=== PATIENT | female | born 1995 | race Caucasian/White ===

== ENCOUNTER → 2023-06-06 | Outpatient (CLI) | payer OTHER, SELFPAY ==
[2023-06-06 09:57] LABS: Absolute Lymphocyte Count 2.13 X10^3/uL (0.83-4.51); Absolute Neutrophil Count 6.9 X10^3/uL (2.0-7.7); Basophil# 0.05 X10^3/uL; Basophil% 0.5 % (0-1); Eosinophil# 0.07 X10^3/uL; Eosinophils% 0.7 % (0-5); Hematocrit 34.8 % (37-47); Hemoglobin 11.8 g/dL (12.0-15.0); Lymphocyte # 2.13 X10^3/ul (0.83-4.51); Mean Corp Hgb Conc 33.9 g/dL (32-36); Mean Corpuscular Hgb 29.8 pg (27.0-32.0); Mean Corpuscular Volume 87.9 fL (81-99); Mean Platelet Vol. 9.6 fl (6.2-12.0); Monocyte# 0.53 X10^3/uL; Monocyte% 5.5 % (0-10); NRBC Flagged by Analyzer 0 % (0-5); Neutrophil # 6.85 X10^3/uL (2.7-7.7); Neutrophil % 70.9 % (47-70); Platelet Count 281 K/mm3 (150-450); RBC Distribution Width CV 11.4 % (11.6-14.6); RBC Distribution Width SD 36.9 fl (35.1-43.9); Red Blood Count 3.96 M/mm3 (4.2-5.4); White Blood Count 9.7 K/mm3 (4.4-11.0)
[2023-06-06 10:47] LABS: NATERA MAILED SPECIMEN
[2023-06-06 11:15] LABS: HIV - WCH Non-Reactive (Nonreactive); Hepatitis B Surface Antigen Non-Reactive (Nonreactive); Hepatitis C Antibody Non-Reactive (Nonreactive); Rubella IgG Reactive (Nonreactive); Syphilis Antibodies Non-reactive
[2023-06-08 04:07] LABS: Chlamydia By Nucleic Acid AMP Negative (Negative); Gonococcus By Nucleic Acid AMP Negative (Negative)
== END | disposition home or self-care (01) ==
PROVIDERS: Referring Provider Obstetrics & Gynecology; Visit Provider Obstetrics & Gynecology
DX: Z34.90 Encounter for supervision of normal pregnancy, unspecified, unspecified trimester (principal)
CPT/HCPCS: 36415; 85025; 86703; 86762; 86780; 86803; 86850; 86900; 86901; 87086; 87088; 87340; 87491; 87591

== ENCOUNTER → 2023-06-07 | Outpatient (CLI) | payer OTHER, SELFPAY ==
--- NOTE | 2023-06-07 15:23 | US_ITS ---
INDICATION: LMP UNKNOWN-dates EXAMINATION: Ultrasound US OB Less Than 14 Weeks TECHNIQUE: Transabdominal pelvic ultrasound was performed. Grayscale, spectral waveform, and color flow Doppler evaluation of the adnexa. COMPARISON: None LMP: [Unknown Beta-hCG: Unknown FINDINGS: UTERUS: 9.6 x 8.4 x 6.1 cm. There are several small nabothian cysts were noted in the cervix. RIGHT OVARY: 3.4 x 2.3 x 1.7 cm. Numerous small follicular cysts are present. Arterial flow is documented with Doppler. LEFT OVARY: 3.4 x 1.9 x 2.0 cm. 1 or 2 small follicular cysts are present. Arterial flow is documented with Doppler. FREE FLUID: None. INTRAUTERINE GESTATIONAL SAC(s) (size/shape): Single. Mean sac diameter is 5.17 cm, corresponding to a gestational age of 11 weeks, 0 days. Normal shape. YOLK SAC: Identified, measuring 4.5 mm POLE: Identified CRL 3.21 cm, corresponding to gestational age of 9 weeks, 6 days. HEART MOTION: 171-180 bpm. PLACENTA: An early anterior placenta is identified. SUBCHORIONIC HEMORRHAGE: 1.2 x 1.1 x 0.6 mm hypoechogenicity at the right upper margin of the gestational sac is consistent with a small subchorionic hemorrhage. AMNIOTIC FLUID: Qualitatively normal. US/Init OB < 14Wks US IMPRESSION: 1. Single live intrauterine at estimated gestational age of 10 weeks, 3 days. Estimated date of delivery is December 31, 2023. 2. Small subchorionic hemorrhage or implantation bleed at the right upper margin of the gestational sac. 3. Early anterior placenta is noted. 4. Unremarkable follicular cysts are seen in the normal sized ovaries. Electronically Signed: Angel Floyd MD at 16:48 EDT Reading Location ID and State: [id number] / Unknown , Service support ,
== END | disposition home or self-care (01) ==
LOC: US 15:21
PROVIDERS: Referring Provider Obstetrics & Gynecology; Visit Provider Obstetrics & Gynecology
DX: Z78.9 Other specified health status (principal)
CPT/HCPCS: 76801

== ENCOUNTER 2023-07-05 16:20 | Observation (INO) | payer OTHER, SELFPAY ==
[2023-07-05 16:21] VITALS: BP 129/91; PULSE 99; RESP 18; TEMP 36.4; O2SAT 100; BMI 26.2
[2023-07-05 16:56] LABS: Absolute Lymphocyte Count 2.28 X10^3/uL (0.83-4.51); Absolute Neutrophil Count 11.6 X10^3/uL (2.0-7.7); Basophil# 0.04 X10^3/uL; Basophil% 0.3 % (0-1); Eosinophil# 0.07 X10^3/uL; Eosinophils% 0.5 % (0-5); Hematocrit 32.2 % (37-47); Hemoglobin 11.4 g/dL (12.0-15.0); Lymphocyte # 2.28 X10^3/ul (0.83-4.51); Lymphocyte % 15.5 % (19-41); Mean Corp Hgb Conc 35.4 g/dL (32-36); Mean Corpuscular Hgb 30.5 pg (27.0-32.0); Mean Corpuscular Volume 86.1 fL (81-99); Mean Platelet Vol. 9.7 fl (6.2-12.0); Monocyte% 4.8 % (0-10); NRBC Flagged by Analyzer 0 % (0-5); Neutrophil # 11.56 X10^3/uL (2.7-7.7); Neutrophil % 78.6 % (47-70); Platelet Count 271 K/mm3 (150-450); RBC Distribution Width CV 11.9 % (11.6-14.6); RBC Distribution Width SD 37.3 fl (35.1-43.9); Red Blood Count 3.74 M/mm3 (4.2-5.4); White Blood Count 14.7 K/mm3 (4.4-11.0)
[2023-07-05 17:17] LABS: ALB/GLOB Ratio 0.9 RATIO (0.9-2.4); AST(SGOT) 16 U/L (15-37); Alanine Aminotransfer ALT/SGPT 19 U/L (13-56); Albumin, Serum 3.5 g/dL (3.2-5.0); Alkaline Phosphatase 62 U/L (45-117); Anion Gap 8 (5-15); BUN 6 mg/dL (7-18); Calcium,Total 8.9 mg/dL (8.5-10.1); Chloride 106 mmol/L (98-107); Creatinine, Serum 0.46 mg/dL (0.55-1.02); EST Glomerular Filtration Rate 174 mL/min (>60); Est Glom Filt Rate - Afr Amer 210 mL/min (>60); Estimated Creatinine Clearance 146.58 ml/min; Globulin 3.9 g/dL (2.2-4.2); Glucose 93 mg/dL (74-106); Potassium 3.7 mmol/L (3.5-5.1); Protein, Total 7.4 g/dL (6.4-8.2); Sodium Level 136 mmol/L (136-145)
--- NOTE | 2023-07-05 18:03 | ED.VIS.GI ---
HPI HPI - GI History of Present Illness Chief Complaint: Abd Pain Informant: patient Narrative Narrative: Patient started having abdominal pain in the right mid-lower abdomen around 4 AM, she presents to the ED for evaluation and is seen about 14 hours later, the pain has been getting worse, it is moved from laterally a little bit over and down to around McBurney's point. She ate today without any difficulty and it did not make the pain worse. No fevers. No urinary symptoms. She is around 15 weeks. She has had no issues with the except for nausea and vomiting, she does not think that has been worse. She saw her bus trolley and taxi instructor today for this, Dr. Enrique, and she sent her to the ED for an ultrasound to evaluate for appendicitis. 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[employer] current occupational exposures/hazards: No pets and animals: Yes pets and animals: dog(s) history of recent travel: No sexually active: Yes Smoking Status: Never smoker alcohol intake: never substance use type: does not use well-balanced diet: daily or most days caffeine: No eating out: 1-3 times/week during the past year weight has: remained stable what type of physical activity do you participate in: weight training frequency: 3-4 times per week duration: 45-60 minutes/day ralf/holiness: None seatbelt use: always do you feel safe at home: Yes additional social history: Rufina Kruger ROS ROS ED Constitutional Constitutional ED: Denies chills or fever(s) Eyes Eyes: Denies change in vision or diplopia ENT ENT ED: Denies rhinorrhea or sore throat Cardiovascular Cardiovascular: Denies chest pain or palpitations Respiratory/Chest Respiratory/Chest: Denies cough or dyspnea Gastrointestinal Gastrointestinal: Reports abdominal pain, nausea and vomiting; Denies diarrhea Genitourinary Genitourinary ED: Denies dysuria or hematuria Musculoskeletal Musculoskeletal: Denies back pain or neck pain Integumentary Denies abscess or rash Neurologic Neurologic: Denies headache(s), paresthesias or weakness Psychiatric Psychiatric: Denies anxiety or suicidal thoughts EXAM Physical Exam Const Vital Signs: 07/05/23 16:21 07/05/23 19:00 07/05/23 22:46 Temperature 97.6 F L 98 F Temperature Source Temporal Temporal Pulse Rate 99 93 Respiratory Rate 18 20 H 18 Blood Pressure 129/91 H 113/79 Blood Pressure Mean 103 90 Pulse Ox 100 99 Oxygen Delivery Method Room Air Room Air 07/05/23 22:49 Temperature 98 F Temperature Source Temporal Pulse Rate 93 Respiratory Rate 16 Blood Pressure 113/79 Blood Pressure Mean 90 Pulse Ox 99 Oxygen Delivery Method Room Air Positive well nourished and well developed General Appearance ED: well developed and NAD HEENT Reports moist mucous membranes normocephalic and atraumatic Eyes PERRL and EOMs intact bilaterally Neck full ROM and supple Resp normal respiratory effort and clear to auscultation bilaterally Cardio regular rate, regular rhythm and no murmurs GI non-distended GI Narrative: Patient is tender at McBurney's point, as the area of maximal tenderness. There is no guarding or rebound tenderness. The rest the abdomen is benign. Negative Rovsing. Auscultation: normoactive bowel sounds Palpation: soft Back/Spine no CVA tenderness General Back: other FROM Extremity normal to inspection General Extremety ED: Negative for edema, pulses abnormal or tenderness General Extremity: Negative for edema or pulses abnormal Neuro oriented x3, CN's II-XII intact bilaterally and no sensory deficits noted Sensorium / Orientation: awake and alert Motor Exam: strength 5/5 throughout Skin no rashes or lesions noted and no wounds MDM MDM MDM Narrative Medical decision making narrative: Patient does have a leukocytosis, she is tender in the right area and acute appendicitis is certainly in the differential here. I discussed with ultrasound, they are not able to even perform the test to look for her appendix. Discussed with surgery Dr. Cao, he states the CT often is done here but an MRI would be appropriate as well. I discussed with the pilot plant research technician, she said she has never done it for this reason before and does not have a protocol, and so she made phone calls discussing with radiology, and then the manager sign of the radiology department called me, said that he discussed with the radiologist and they asked the computer field technician to perform the ultrasound, MR was very backed up, and they would do an MR if needed after the ultrasound. The ultrasound was not performed, they did not do compression of the tubular structure that appeared to be mildly dilated appendix, and so it was read as equivocal. At this time surgery recommended a CT, the patient was very apprehensive of getting the CT due to the radiation, understandably. I discussed with Dr. Strong with the patient's OB practice, who discussed with the patient, and in the end everyone is in agreement that the benefits of the CT outweigh the risks which are minimal, and the patient is okay getting the limited CT, surgery recommends getting it with IV contrast only. This was obtained. I reviewed the images, as did surgery, and we discussed with the patient, as we are suspicious it represents acute appendicitis. Patient was given IV fluids, Zosyn, Zofran, and plan is taking her directly to surgery. Radiology did call regarding the CT results, consistent with nonruptured acute appendicitis, which I agree with. Lab Data Attestation: I reviewed the patient's lab results. Labs: Laboratory Results - last 24 hr 07/05/23 07/05/23 16:47 20:02 WBC 14.7 H RBC 3.74 L Hgb 11.4 L Hct 32.2 L MCV 86.1 MCH 30.5 MCHC 35.4 RDW Std Deviation 37.3 RDW Coeff of [place] 11.9 Plt Count 271 MPV 9.7 Immature Gran % (Auto) 0.300 Neut % (Auto) 78.6 H Lymph % (Auto) 15.[address] [place] [place] % (Auto) 4.8 Eos % (Auto) 0.5 Baso % (Auto) 0.3 Absolute Neuts (auto) 11.6 H Absolute Lymphs (auto) 2.28 Nucleated RBC % 0 Sodium 136 Potassium 3.7 Chloride 106 Carbon Dioxide 22.0 Anion Gap 8 BUN 6 L Creatinine 0.46 L Estim Creat Clear Calc 146.58 Est GFR (MDRD) Af Amer 210 Est GFR (MDRD) Non-Af 174 BUN/Creatinine Ratio 13.0 Glucose 93 Calcium 8.9 Total Bilirubin 0.30 AST 16 ALT 19 Alkaline Phosphatase 62 Total Protein 7.4 Albumin 3.5 Globulin 3.9 Albumin/Globulin Ratio 0.9 Urine Color Yellow Urine Clarity Clear Urine pH 6.5 Ur Specific [place] 1.010 Urine Protein Negative Urine Glucose (UA) Normal Urine Ketones 5 H Urine Occult Blood Negative Urine Nitrite Negative Urine Bilirubin Negative Urine Urobilinogen Normal Ur Leukocyte Esterase Negative Urine RBC 0 SEEN Urine WBC 0 SEEN Ur Squamous Epith Cells 0-5 SEEN Urine Bacteria 1+ Urine Mucus 0 SEEN Radiography Diagnostic Testing: Clinical Impression(s) from Imaging Studies Abdomen Ultrasound 07/05/23 19:15 IMPRESSION: Findings equivocal for acute nonruptured appendicitis. Electronically Signed: David Pichardo MD at 21:02 EDT , Pelvis CT 07/05/23 21:43 IMPRESSION: Acute nonruptured appendicitis. No focal fluid collection or free air. Electronically Signed: David Pichardo MD at 22:54 EDT , Management Discussion w/another healthcare provider: Windows Laptop Technician (surgery), Radiologist and Other (see above) Critical Care Time Critical Care Time: Yes Critical care time (excluding procedures): 30-74 minutes (45 min), Including time spent:, Discussing w/Patient &/or Family/Flange Turner, Discussing w/Consultants, Arranging Admission or Transfer and Performing Direct Patient Care at Bedside Discharge Plan Dx/Rx/DC Orders Clinical Impression: Acute appendicitis complicating Disposition Disposition: [facility]
[2023-07-05 19:00] VITALS: RESP 20
--- NOTE | 2023-07-05 19:15 | US_ITS ---
INDICATION: preg 15 wks, RLQ pain, eval for appy EXAMINATION: US Abdomen Limited (quadrant) TECHNIQUE: Gillespie-scale and color Doppler imaging was performed of the right lower quadrant.. COMPARISON: None. Findings: There is a blind ending tubular structure in the right lower quadrant likely representing the appendix. It is mildly dilated measuring up to 9 mm in diameter. There is no wall thickening. There is no surrounding inflammatory changes. It is slightly hyperemic. No definite appendicolith. No free fluid. US/Abdomen Limited IMPRESSION: Findings equivocal for acute nonruptured appendicitis. Electronically Signed: David Pichardo MD at 21:02 EDT ,
[2023-07-05 20:07] LABS: Mucous, Urine 0 SEEN /hpf (<or=2+); Red Blood Cells-Urine 0 SEEN /hpf (0-5); White Blood Cells 0 SEEN /hpf (0-5)
[2023-07-05 20:08] LABS: Color, Urine Yellow (Yellow); Glucose, Dipstick Normal (Normal); Ketone-Dipstick 5 mg/dl (Negative); Leukocyte Esterase-Dipstick Negative /ul (Negative); Nitrite-Dipstick Negative (Negative); Occult Blood-Urine Negative /ul (Negative); Protein-Dipstick Negative (Negative); Urine Bilirubin Dipstick Negative (Negative); Urine Clarity Clear (Clear); Urine Urobilinogen Normal (Normal); Urine pH 6.5 (5.0 - 8.0)
[2023-07-05 20:15] LABS: Bacteria 1+ /hpf (None Seen); Squamous Epithelial Cells - UA 0-5 SEEN /hpf (5-10)
--- NOTE | 2023-07-05 20:51 | CM.ED ---
Social Work Note Referral Source: case find Referral Reason: no PCP SW met with patient and introduced herself and role as [facility] Bookkeeping Clerk. Patient lying on hospital bed and agreeable to speak with SW with family present. SW inquired about patient's insurance and current PCP. Patient verified insurance and reports no current PCP. SW provided patient with a list of local PCPs in network with patient's insurance and accepting new patients. Patient was receptive towards list and voiced no other needs. SW remains available if needs arise. Taylor Pryor CITY COLLECTOR, JANEY
--- NOTE | 2023-07-05 21:43 | CT_ITS ---
We are attempting to reach an attending provider to discuss findings. An addendum with communication details will be sent when the communication is complete. INDICATION: RLQ pain, suspect appy, preg 15 wks -- LIMITED EXAM PLEASE EXAMINATION: CT Pelvis W/ Contrast Injection TECHNIQUE: Helically acquired images were obtained of the pelvis after IV contrast. A radiation dose optimization technique was used for this scan. IV Contrast dosage and agent: IV 100mL [id number]-370 Oral contrast: None. COMPARISON: None. FINDINGS: Liver: Visualized portions are unremarkable. Gallbladder: Visualized portions are unremarkable. Pancreas: Visualized portions are unremarkable. Kidneys: Visualized portions are unremarkable. Vasculature: Unremarkable GI Tract: The appendix is dilated measuring up to 1 cm in diameter. There is a hyperenhancing an slightly thickened wall. There is mild surrounding mesenteric fat stranding. No focal fluid collection or free air. Lymphadenopathy: None Peritoneum: No ascites. Bladder: Unremarkable Reproductive organs: Intrauterine gestation is present. Bones/Soft tissues: No suspicious osseous or soft tissue lesions CT/Pelvis WITH IV Contrast IMPRESSION: Acute nonruptured appendicitis. No focal fluid collection or free air. Electronically Signed: David Pichardo MD at 22:54 EDT ,
--- NOTE | 2023-07-05 22:18 | PCM.HP.STD ---
HPI - General General Date of Admission: 07/05/23 HPI Narrative PIA VIEIRA, is a 27 F who presents to the ER due to a right lower quadrant pain. Patient is currently 14 to 15 weeks with her first . Patient states the right lower quadrant pain started about 4 AM this morning was initially little bit higher and did go a little bit lower more this evening. Patient did have an ultrasound in the ER which was read as equivocal for acute appendicitis. Patient's white blood count is 14.7. Patient did undergo a CT after slight hesitation after talking with OB about the the risk versus benefits. CT abdomen/pelvis was consistent with acute appendicitis on my read current read is pending. Patient did have heart tones done prior to surgery -- 164. 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[employer] current occupational exposures/hazards: No pets and animals: Yes pets and animals: dog(s) history of recent travel: No sexually active: Yes Smoking Status: Never smoker alcohol intake: never substance use type: does not use well-balanced diet: daily or most days caffeine: No eating out: 1-3 times/week during the past year weight has: remained stable what type of physical activity do you participate in: weight training frequency: 3-4 times per week duration: 45-60 minutes/day ralf/latter-day: None seatbelt use: always do you feel safe at home: Yes additional social history: Rufina Kruger Vital Signs Vital Signs Vital Signs: 07/05/23 16:21 07/05/23 19:00 Temperature 97.6 F L Temperature Source Temporal Pulse Rate 99 Respiratory Rate 18 20 H Blood Pressure 129/91 H Blood Pressure Mean 103 Pulse Ox 100 Oxygen Delivery Method Room Air Weight Weight: 143 lb Body Mass Index (BMI) 26.2 Physical Exam Const alert, oriented x3 and no apparent distress HEENT normocephalic and head/scalp atraumatic Resp normal respiratory effort Cardio regular rate GI soft to palpation GI Narrative: Gestation 14 weeks uterus Palpation: tender RLQ; Negative for guarding Extremity no clubbing, cyanosis or edema Neuro CN's II-XII intact bilaterally Psych mental status grossly normal Results Lab / Micro Data 07/05/23 16:47 07/05/23 16:47 Labs: Laboratory Results - last 24 hr 07/05/23 16:47: WBC 14.7 H, RBC 3.74 L, Hgb 11.4 L, Hct 32.2 L, MCV 86.1, MCH 30.5, MCHC 35.4, RDW Std Deviation 37.3, RDW Coeff of [place] 11.9, Plt Count 271, MPV 9.7, Immature Gran % (Auto) 0.300, Neut % (Auto) 78.6 H, Lymph % (Auto) 15.5 L, [place] % (Auto) 4.8, Eos % (Auto) 0.5, Baso % (Auto) 0.3, Absolute Neuts (auto) 11.6 H, Absolute Lymphs (auto) 2.28, Nucleated RBC % 0, Sodium 136, Potassium 3.7, Chloride 106, Carbon Dioxide 22.0, Anion Gap 8, BUN 6 L, Creatinine 0.46 L, Estim Creat Clear Calc 146.58, Est GFR (MDRD) Af Amer 210, Est GFR (MDRD) Non-Af 174, BUN/Creatinine Ratio 13.0, Glucose 93, Calcium 8.9, Total Bilirubin 0.30, AST 16, ALT 19, Alkaline Phosphatase 62, Total Protein 7.4, Albumin 3.5, Globulin 3.9, Albumin/Globulin Ratio 0.9 07/05/23 20:02: Urine Color Yellow, Urine Clarity Clear, Urine pH 6.5, Ur Specific [place] 1.010, Urine Protein Negative, Urine Glucose (UA) Normal, Urine Ketones 5 H, Urine Occult Blood Negative, Urine Nitrite Negative, Urine Bilirubin Negative, Urine Urobilinogen Normal, Ur Leukocyte Esterase Negative, Urine RBC 0 SEEN, Urine WBC 0 SEEN, Ur Squamous Epith Cells 0-5 SEEN, Urine Bacteria 1+, Urine Mucus 0 SEEN Radiology Impression Abdomen Ultrasound 07/05/23 19:15 IMPRESSION: Findings equivocal for acute nonruptured appendicitis. Electronically Signed: David Pichardo MD at 21:02 EDT , Assessment & Plan Assessment/Plan (1) Appendicitis, acute: (2) : PLAN: Plan 1. Discussed procedure laparoscopic appendectomy along with the risk but not limited to bleeding, infection/abscess, injury to another organ (small bowel, colon, etc.), adhesion, hernia at incision sites, and risks to the fetus even an uncomplicated appendicitis which would be greater if it were perforated and anesthesia. We will plan for heart tones in PACU as well as plan for an ultrasound in the morning?did discuss with Dr. Strong patient's OB. Preeti Cao M.D. Pager: [phone] [facility] [address] [place] [address], [address] [place] [address] Office: [phone]
[2023-07-05] MEDS: Ondansetron 4 MG/2 ML Vial IV (22:39)
[2023-07-05] MEDS: 0.9% Normal Saline 1,000 ML 250 ML IV (22:42)
[2023-07-05 22:46] VITALS: BP 113/79; PULSE 93; RESP 18; TEMP 36.6; O2SAT 99
[2023-07-05 22:49] VITALS: BP 113/79; PULSE 93; RESP 16; TEMP 36.6; O2SAT 99
--- NOTE | 2023-07-05 23:20 | APP_PTH ---
PATIENT: PIA VIEIRA APRIL LOC: MS3 U#:[id number] AGE/SX: 27/F ROOM: NV310 RE07/05/[address]: Dr. Preeti Cao MD : 1995 BED: 1 DIS: 07/06/2023 SPEC #: [id number] RECD: 07/06/23 12:57 STATUS: DAYNA REMargarita #: [id number] ALVARADO: 07/05/23 23:[address]: Preeti Cao DEPT: SURGICAL PATHOLOGY RECD BY: Lavinia Servin ENTERED: 07/07/23 07:35 SP TYPE: APPENDIX OTHR DR: No Primary Care Phys Tissues: Appendix, NOS Procedures: Surgery Specimen Level III HEADER OPERATION: Laparoscopic appendectomy PRE-OP DIAGNOSIS: Acute appendicitis TISSUE SUBMITTED: Appendix MICROSCOPIC DIAGNOSIS Appendix, appendectomy: Acute appendicitis. Acute serositis. AM:guy 07/08/2023 MICROSCOPIC DESCRIPTION Slides are reviewed. GROSS DESCRIPTION Received in fixative is one container labeled with the patient's name and designated appendix. The specimen consists of a vermiform appendix measuring 6.0 cm in length and 1.0 cm in average diameter. No gross perforations are evident. Serial sections reveal a patent lumen. Saw Grinder sections are submitted in two cassettes. / AM:guy 07/07/2023 TC:2 CPT: 98772
[2023-07-05] MEDS: Bupivacaine Mpf 0.5% 30 ML VIAL (23:58)
--- NOTE | 2023-07-05 23:59 | PCM.OPRPT ---
Report of Operation Date of Procedure: 07/05/23 Pre-Operative Diagnosis: Acute appendicitis, 14-15 weeks gestation Post-Operative Diagnosis: Same Surgery/Procedure Performed:: Laparoscopic appendectomy Description of Surgical Findings:: Inflamed appendix no perforation Surgeon: Preeti Cao vapor coater: Jennifer Rivas Type of Anesthesia: General/Supplemental Anesthesiologist: Wolfgang Villarreal Special Medications: Zosyn 3.375 g IV x1 Specimen's removed: Appendix Estimated Blood Loss (mL): < 10 cc Description of Procedure: Indications: 27-year-old female presented to the ER with new right lower quadrant pain this morning at 4 AM. Patient is 14-15 weeks gestation. On workup she was found to have acute appendicitis on CT and a leukocytosis of 14.7. Patient was started on antibiotics in the ER for acute appendicitis-Zosyn IV Description of the procedure: The patient was placed on operating table in supine position. General anesthesia was induced. A timeout was completed verifying correct patient, procedure, position and special equipment prior to beginning procedure. Abdomen was prepped and draped in usual sterile fashion. Incision was made in the natural skin line above the umbilicus with a 15 blade scalpel. The fascia was elevated and incised. Entry into the peritoneum was confirmed visually and no bowel was noted in the vicinity of the incision. The Thomas trocar was placed under direct vision. Abdomen insufflated with a pressure of 12-15 mmHg. Patient tolerated insertion well. The scope was inserted and the abdomen inspected. No injuries from initial trocar placement were noted. Minimal amount of fluid was seen in the right lower quadrant. An direct visualization 2 -5 mm trocars were placed one above the symphysis pubis and below the hairline and one in the left lower quadrant lateral to the rectus muscle. Care is taken to avoid injury to the bladder and inferior epigastric vessels. The table was placed in Trendelenburg position with the right side elevated. The appendix was grasped with atraumatic grasper and elevated. It was noted to be inflamed. A window was developed in the mesoappendix at the point between the base of the appendix and the cecum. An endoscopic 45 mm linear cutting stapler blue load was then used to divide and staple the base of the appendix. Enseal was used to divide the mesoappendix. The appendix was withdrawn into the Thomas trocar after being placed endoscopically retrieval bag. Appendix was sent to pathology. The appendiceal stump was then irrigated and hemostasis was assured. Fluid was suctioned no other pathology was identified. Secondary trochars were removed under direct visualization. No bleeding was noted trocar sites. The laparoscope withdrawn and the umbilical trocar removed. The abdomen was allowed to collapse. Local anesthesia of 18 mL of 0.5% Marcaine was used at the incision sites. The umbilical trocar site was closed with the [id number] 0 Vicryl suture. The skin was closed using sutures of 4-0 Monocryl and Steri-Strips. The patient was extubated. The patient tolerated the procedure well and was taken to the postanesthesia care unit in satisfactory condition. Complications none
[2023-07-06] VITALS (8 sets, daily range): BP systolic 94–129; BP diastolic 47–91; PULSE 62–106; RESP 16–18; TEMP 36.6–37.4; O2SAT 95–100; BMI 26.6
--- NOTE | 2023-07-06 00:27 | NURSING ---
telephone order was received from for WP RN to obtain heart tones after surgery x1 0020 This RN went to PACU to obtain heart tones post surgery. FHR 152 via doppler. Maternal HR 77
--- NOTE | 2023-07-06 00:42 | SUR.PHASEI ---
AT APPROXIMATELY 0018, 2 RNs FROM [facility] CAME TO PACU TO ASSESS THE HEART TONES. HEART TONES ARE IN THE 150s.
[2023-07-06] MEDS: 0.9% Saline Lock 10 ML Syringe IV (01:51)
[2023-07-06] MEDS: 0.9% Normal Saline 1,000 ML 130 ML IV (01:51)
[2023-07-06] MEDS: Ondansetron 4 MG/2 ML Vial IV (01:52)
--- NOTE | 2023-07-06 07:00 | US_ITS ---
STUDY: SECOND AND THIRD TRIMESTER OBSTETRICAL ULTRASOUND - LIMITED REASON FOR EXAM: Female, 27 years old patient is 15 wk , s/p lap appy yesterday LMP: March 25, 2023. PRIOR ULTRASOUND: Comparison is made with prior study dated June 07, 2023. TECHNIQUE: Transabdominal TECHNICAL QUALITY: Adequate. FINDINGS: There is a single intrauterine fetus. The fetus is in a breech presentation. There is demonstrated cardiac activity with a heart rate of 165 bpm. There is a normal amniotic fluid volume. The largest amniotic fluid pocket measures 3 cm x 3.8 cm. The amniotic fluid index (ZEYNEP) is within normal limits. The placenta is anterior in location and is not low lying. There are Grade 0 placental changes. The cervix measures 5.2 cm in length. BIOMETRY: Age by LMP: 14 weeks, 5 days. THADDEUS by LMP: December 30, 2023. age by prior US: 14 weeks, 4 days. THADDEUS by prior US: December 31, 2023. US/OB Limited (No Biometrics) IMPRESSION: Single live intrauterine gestation with a mean gestational age of 14 weeks and 4 days. Electronically Signed: Rubén Sanchez MD at 9:22 EDT ,
--- NOTE | 2023-07-06 08:34 | PCM.PN.SRG ---
Subjective Subjective Tolerating diet and having small mount of flatus. Patient's pain is controlled. Patient had the OB ultrasound which showed good heart tones. Objective Data Objective Data Vital Signs: Vital Signs Temp Pulse Resp BP Pulse Ox O2 Del Method 99.2 F H 80 16 94/47 L 96 Room Air 07/06/23 06:03 07/06/23 06:03 07/06/23 06:03 07/06/23 06:03 07/06/23 06:03 07/06/23 06:03 Oxygen Delivery Method Room Air Weight: 145 lb 9 oz Body Mass Index (BMI) 26.6 Intake & Output: Intake and Output for Last 24 Hours 07/04/23 07/05/23 07/06/23 23:59 23:59 23:59 Intake Total 50 / 50 1717.17 / 1717.17 Balance 50 / 50 1717.17 / 1717.17 Lab / Micro Data 07/05/23 16:47 07/05/23 16:47 Labs: Laboratory Results - last 24 hr 07/05/23 16:47: WBC 14.7 H, RBC 3.74 L, Hgb 11.4 L, Hct 32.2 L, MCV 86.1, MCH 30.5, MCHC 35.4, RDW Std Deviation 37.3, RDW Coeff of [place] 11.9, Plt Count 271, MPV 9.7, Immature Gran % (Auto) 0.300, Neut % (Auto) 78.6 H, Lymph % (Auto) 15.5 L, [place] % (Auto) 4.8, Eos % (Auto) 0.5, Baso % (Auto) 0.3, Absolute Neuts (auto) 11.6 H, Absolute Lymphs (auto) 2.28, Nucleated RBC % 0, Sodium 136, Potassium 3.7, Chloride 106, Carbon Dioxide 22.0, Anion Gap 8, BUN 6 L, Creatinine 0.46 L, Estim Creat Clear Calc 146.58, Est GFR (MDRD) Af Amer 210, Est GFR (MDRD) Non-Af 174, BUN/Creatinine Ratio 13.0, Glucose 93, Calcium 8.9, Total Bilirubin 0.30, AST 16, ALT 19, Alkaline Phosphatase 62, Total Protein 7.4, Albumin 3.5, Globulin 3.9, Albumin/Globulin Ratio 0.9 07/05/23 20:02: Urine Color Yellow, Urine Clarity Clear, Urine pH 6.5, Ur Specific [place] 1.010, Urine Protein Negative, Urine Glucose (UA) Normal, Urine Ketones 5 H, Urine Occult Blood Negative, Urine Nitrite Negative, Urine Bilirubin Negative, Urine Urobilinogen Normal, Ur Leukocyte Esterase Negative, Urine RBC 0 SEEN, Urine WBC 0 SEEN, Ur Squamous Epith Cells 0-5 SEEN, Urine Bacteria 1+, Urine Mucus 0 SEEN Radiography Diagnostic Testing: Radiology Impression Abdomen Ultrasound 07/05/23 19:15 IMPRESSION: Findings equivocal for acute nonruptured appendicitis. Electronically Signed: David Pichardo MD at 21:02 EDT , Pelvis CT 07/05/23 21:43 IMPRESSION: Acute nonruptured appendicitis. No focal fluid collection or free air. Electronically Signed: David Pichardo MD at 22:54 EDT , ADDENDUM: 07/05/23 2304 IMPRESSION: Acute nonruptured appendicitis. No focal fluid collection or free air. N.B. : The above Results were Read Back by David Pichardo MD to Jose Elias Alex MD, and understanding confirmed on 07/05/2023 22:57:44 (ET). Electronically Signed: David Pichardo MD at 22:54 EDT , Physical Exam Resp normal respiratory effort Cardio regular rate GI GI Narrative: Abdomen: Soft, nondistended, tender near incision's dressed clean dry and intact, no peritoneal signs Assessment & Plan Assessment/Plan (1) S/P laparoscopic appendectomy: (2) : PLAN: Plan Patient doing well pain is controlled. Patient's ultrasound did show good heart tones at 166. Okay to DC home.
[2023-07-06] MEDS: Prenatal Vits Tablet 1 TABLET PO (09:34)
--- NOTE | 2023-07-06 10:29 | DCINST_ITS ---
Discharge Instructions Diet Discharge Diet: Light diet - advance as tolerated Activity Discharge Activity: May Not Drive (while taking narcotic pain medications.) May shower in (days): 1 Lifting Restrictions: no lifting >20 lbs x 2 wks, no strenuous exercise for 4 wks Dressing / Incision Call your doctor if your incision/area has: Continuous Slow Oozing, Sudden Increased Bleeding, Increased Pain/ Swelling, Increased Redness, Foul Smelling Discharge and Swelling at the incision site Call your doctor if you observe: Fever of 101 or Higher Remove Dressing in: 2 days Cleanse incision/area with: Soap & Water Additional Dressing/Incision Instructions:: Steri-Strips will fall off in 7 to 10 days, if they do not fall off okay to remove after 10 days. Follow Up Care Please Follow Up With: Preeti Cao MD When: Call the office for a follow-up appointment 2 weeks; after 5 PM and on the weekends call [phone] with any concerns. Test Results: Test results from this visit will be discussed in further detail at your follow- up appointment, if applicable. Discharge Plan Admission Admit Date/Time: 07/05/23 22:50 Attending Provider: Preeti Cao Primary Care Provider: Johanny PhysicianArely Primary Discharge Orders/Prescriptions Prescriptions: Continued PNV-DHA 27 mg iron-1 mg -300 mg capsule 1 cap PO DAILY Referrals / Follow Up: Johanny PhysicianArely Primary [Primary Care Provider] - Disposition Disposition (needs filled in before D/C Order can be placed): Home, Self Care
--- NOTE | 2023-07-06 10:42 | PHA.DC.MR.R ---
Pharmacy OR Med Reconciliation Pharmacy Service has performed discharge medication reconciliation for this patient. The patient's discharge medication list was reviewed for discrepancies and discrepancies were resolved. Medications at Discharge Home Medications multivitamin no.47-iron fum 27 mg-folate no.1 1 mg-dha 300 mg capsule (PNV-DHA) 1 cap PO DAILY vitamin 05/26/23
== END 2023-07-06 11:56 | disposition home or self-care (01) ==
LOC: ED 18:44 → MS3 22:36 → ED 22:58 → MS3 23:00
PROVIDERS: Admitting Provider Surgery; Emergency Provider Emergency Medicine; Visit Provider Surgery
PROC: 0DTJ4ZZ Resection of Appendix, Percutaneous Endoscopic Approach (ICD-10-PCS; CPT 44970; principal; 2023-07-05 23:00)
DX: O99.612 Diseases of the digestive system complicating pregnancy, second trimester (principal); Z3A.15 15 weeks gestation of pregnancy; K35.80 Unspecified acute appendicitis
CPT/HCPCS: 44970; 00840; 96365; 72193; 76705; 76815; 80053; 81001; 85025; 88304; 96361; 96374; 96376; 99221; 99284; J7030; Q9967; A4216; C1760; G0378; J2405

== ENCOUNTER → 2023-09-19 | Outpatient (CLI) | payer OTHER, SELFPAY ==
[2023-09-19 13:44] LABS: Absolute Lymphocyte Count 2.36 X10^3/uL (0.83-4.51); Absolute Neutrophil Count 8.2 X10^3/uL (2.0-7.7); Basophil# 0.04 X10^3/uL; Basophil% 0.4 % (0-1); Eosinophil# 0.08 X10^3/uL; Eosinophils% 0.7 % (0-5); Hematocrit 32.8 % (37-47); Hemoglobin 10.8 g/dL (12.0-15.0); Lymphocyte # 2.36 X10^3/ul (0.83-4.51); Lymphocyte % 20.9 % (19-41); Mean Corp Hgb Conc 32.9 g/dL (32-36); Mean Corpuscular Hgb 29.8 pg (27.0-32.0); Mean Corpuscular Volume 90.4 fL (81-99); Mean Platelet Vol. 10.1 fl (6.2-12.0); Monocyte# 0.57 X10^3/uL; Monocyte% 5.1 % (0-10); NRBC Flagged by Analyzer 0 % (0-5); Neutrophil # 8.16 X10^3/uL (2.7-7.7); Neutrophil % 72.4 % (47-70); Platelet Count 295 K/mm3 (150-450); RBC Distribution Width CV 12.5 % (11.6-14.6); RBC Distribution Width SD 41.1 fl (35.1-43.9); Red Blood Count 3.63 M/mm3 (4.2-5.4); White Blood Count 11.3 K/mm3 (4.4-11.0)
[2023-09-19 14:00] LABS: Glucose Challenge Gest 1H 50g 114 mg/dL (70-140)
[2023-09-19 14:34] LABS: HIV - WCH Non-Reactive (Nonreactive); Syphilis Antibodies Non-reactive
== END | disposition home or self-care (01) ==
LOC: LAB 12:17
PROVIDERS: Referring Provider Nurse Practitioner Women's Health; Visit Provider Nurse Practitioner Women's Health
DX: Z34.90 Encounter for supervision of normal pregnancy, unspecified, unspecified trimester (principal)
CPT/HCPCS: 36415; 82950; 85025; 86703; 86780

== ENCOUNTER → 2023-11-09 | Outpatient (CLI) | payer OTHER, SELFPAY | END | disposition home or self-care (01) | PROVIDERS: Visit Provider Obstetrics & Gynecology | DX: Z34.90 Encounter for supervision of normal pregnancy, unspecified, unspecified trimester (principal) | CPT/HCPCS: 87081 ==

== ENCOUNTER → 2023-12-08 | Outpatient (CLI) | payer OTHER, SELFPAY ==
--- OUTSIDE RECORDS SUMMARY | 2023-12-08 16:36 | XMS RPT_ITS | CCD ---
Author Name Unknown Address [address] [place] [address] Organization [facility] Care Team Providers Care Internet Site Designer Name Role Phone Unavailable Primary Care Provider PEARL Cueva Attending Unavailable PEARL MORENO Referring Unavailable NO PRIMARY CARE, Primary Care Unavailable LADY DELGADO Referring BEAN Herrera Attending Unavailable Medications Completed/Discontinued Medications Medication Drug Class(es) Dates Sig (Normalized) Sig (Original) benzonatate 100 mg oral capsule (1 source) Non-narcotic Antitussive Start: 01-31-2020 End: 03-22-2022 take 2 capsules by mouth three times daily as needed benzonatate (TESSALON PERLE) 100 mg capsule Indications: Influenza-like illness Take 2 capsules by mouth three times daily as needed. 30 capsule 0 01/31/2020 03/22/2022 Discontinued Problems Problem Classification Problem Date Documented Date Episodic/Chronic Immunizations and screening for infectious disease (1 source) Patient encounter status; Translations: [Encounter for screening for human papillomavirus (HPV)] Episodic Other and delivery including normal (2 sources) Urine test positive; Translations: [Encounter for test, result positive] Onset: 01-25-2023 Episodic Other screening for suspected conditions (not mental disorders or infectious disease) (1 source) Cancer cervix screening status; Translations: [Encounter for screening for malignant neoplasm of cervix] Episodic Results Test Name Value Interpretation Reference Range Facil ity Vital Signs Date Time Vital Sign Value Performing Clinician Margareth badillo 03-22-2022 15:03-0400 Body height 158.1 cm Pearl Magnolia WATCH TECHNICIAN.HOT DIP TINNING SUPERVISOR Work Phone: [facility] 03-22-2022 15:03-0400 Body weight 63.78 kg Pearl Magnolia WATCH TECHNICIAN.HOT DIP TINNING SUPERVISOR Work Phone: [facility] 03-22-2022 15:03-0400 Diastolic blood pressure 60 mm[Hg] Pearl Moreno WATCH TECHNICIAN.HOT DIP TINNING SUPERVISOR Work Phone: [facility] 03-22-2022 15:03-0400 Systolic blood pressure 102 mm[Hg] Pearl Moreno WATCH TECHNICIAN.HOT DIP TINNING SUPERVISOR Work Phone: [facility] Encounters Encounter Date Encounter Type Care Provider Facility Start: 08-04-2023 End: 08-04-2023 ambulatory MD PRIMARY CARE [facility] Start: 03-24-2023 End: 03-25-2023 ambulatory PEARL CONRADF Facility:[facility] Start: 03-24-2023 Encounter for gynecological examination (general) (routine) without abnormal findings PEARL MORENO [facility] Start: 01-25-2023 End: 01-26-2023 ambulatory [facility] Facility:[facility] Start: 01-25-2023 Telephone encounter Pearl cruz WATCH TECHNICIAN.HOT DIP TINNING SUPERVISOR Work Phone: OB/Gynecology Plan of Treatment Date Care Activity Detail Author Start: 03-22-2025 PAP TESTING PAP TESTING [facility] Start: 01-25-2023 End: 03-27-2023 Choriogonadotropin.beta subunit [Units/volume] in Serum or Plasma [facility] Work Phone: Immunizations Immunization Date Immunization Notes Care Provider Fa [facility] 12-10-2013 influenza virus vaccine, unspecified formulation Pearl Conradf WATCH TECHNICIAN.HOT DIP TINNING SUPERVISOR Work Phone: [facility] Work Phone: 12-10-2013 Meningococcal, MCV4, unspecified conjugate formulation(groups A, C, Y and W-135) Pearl Moreno WATCH TECHNICIAN.HOT DIP TINNING SUPERVISOR Work Phone: [facility] Work Phone: 10-24-2012 influenza virus vaccine, unspecified formulation Pearl Magnolia WATCH TECHNICIAN.HOT DIP TINNING SUPERVISOR Work Phone: [facility] 09-27-2011 influenza virus vaccine, unspecified formulation Pearl Martincalf WATCH TECHNICIAN.HOT DIP TINNING SUPERVISOR Work Phone: [facility] 12-24-2010 influenza virus vaccine, unspecified formulation Pearl Josh WATCH TECHNICIAN.HOT DIP TINNING SUPERVISOR Work Phone: [facility] 09-17-2009 human papilloma viru s vaccine, quadrivalent Pearl Josh WATCH TECHNICIAN.HOT DIP TINNING SUPERVISOR Work Phone: [facility] Work Phone: 05-19-2009 human papilloma viru s vaccine, quadrivalent Pearl Magnolia WATCH TECHNICIAN.HOT DIP TINNING SUPERVISOR Work Phone: [facility] Work Phone: 05-19-2009 varicella virus vaccine Simon e Magnolia WATCH TECHNICIAN.[facility] Work Phone: [facility] Work Phone: 03-14-2009 human papilloma viru s vaccine, quadrivalent Pearl Josh WATCH TECHNICIAN.[facility] Work Phone: [facility] Work Phone: 09-24-2008 influenza virus vaccine, live, attenuated, for intranasal use Pearl Josh WATCH TECHNICIAN.HOT DIP TINNING SUPERVISOR Work Phone: [facility] Work Phone: 12-05-2007 Meningococcal, MCV4, unspecified conjugate formulation(groups A, C, Y and W-135) Pearl Magnolia WATCH TECHNICIAN.[facility] Work Phone: [facility] Work Phone: 12-05-2007 tetanus toxoid, redu tim diphtheria toxoid, and acellular pertussis vaccine, adsorbed Pearl Magnolia WATCH TECHNICIAN.HOT DIP TINNING SUPERVISOR Work Phone: [facility] Work Phone: 09-20-2007 influenza virus vaccine, unspecified formulation Pearl Magnolia WATCH TECHNICIAN.[facility] Work Phone: [facility] Work Phone: 09-10-2006 influenza virus vaccine, unspecified formulation Pearl Josh WATCH TECHNICIAN.HOT DIP TINNING SUPERVISOR Work Phone: [facility] Work Phone: 09-24-2004 influenza virus vaccine, unspecified formulation Pearl Josh WATCH TECHNICIAN.HOT DIP TINNING SUPERVISOR Work Phone: [facility] 10-09-2002 diphtheria, tetanus toxoids and acellular pertussis vaccine Pearl Josh WATCH TECHNICIAN.HOT DIP TINNING SUPERVISOR Work Phone: [facility] Work Phone: 10-09-2002 varicella virus vaccine Simon e Josh WATCH TECHNICIAN.HOT DIP TINNING SUPERVISOR Work Phone: [facility] Work Phone: 03-06-2002 haemophilus influenz ae type b vaccine, HbOC conjugate Pearl Josh WATCH TECHNICIAN.HOT DIP TINNING SUPERVISOR Work Phone: [facility] 03-06-2002 measles, mumps and rubella virus vaccine Pearl Magnolia WATCH TECHNICIAN.HOT DIP TINNING SUPERVISOR Work Phone: [facility] 03-06-2002 poliovirus vaccine, inactivated Pearl Josh WATCH TECHNICIAN.HOT DIP TINNING SUPERVISOR Work Phone: [facility] 09-14-2000 measles, mumps and rubella virus vaccine Pearl Magnolia WATCH TECHNICIAN.HOT DIP TINNING SUPERVISOR Work Phone: [facility] 12-05-1997 diphtheria, tetanus toxoids and pertussis vaccine Pearl Josh WATCH TECHNICIAN.[facility] Work Phone: [facility] Work Phone: 05-09-1997 diphtheria, tetanus toxoids and pertussis vaccine Pearl Josh WATCH TECHNICIAN.HOT DIP TINNING SUPERVISOR Work Phone: [facility] Work Phone: 05-09-1997 haemophilus influenz ae type b vaccine, HbOC conjugate Pearl Magnolia WATCH TECHNICIAN.HOT DIP TINNING SUPERVISOR Work Phone: [facility] 05-09-1997 hepatitis B vaccine, pediatric or pediatric/adolescent dosage Pearl Magnolia WATCH TECHNICIAN.HOT DIP TINNING SUPERVISOR Work Phone: [facility] 05-09-1997 trivalent poliovirus vaccine, live, oral Pearl Magnolia WATCH TECHNICIAN.HOT DIP TINNING SUPERVISOR Work Phone: [facility] Work Phone: 02-14-1997 diphtheria, tetanus toxoids and pertussis vaccine Pearl Magnolia WATCH TECHNICIAN.HOT DIP TINNING SUPERVISOR Work Phone: [facility] Work Phone: 02-14-1997 haemophilus influenz ae type b vaccine, HbOC conjugate Pearl Josh WATCH TECHNICIAN.HOT DIP TINNING SUPERVISOR Work Phone: [facility] 02-14-1997 trivalent poliovirus vaccine, live, oral Pearl Magnolia WATCH TECHNICIAN.HOT DIP TINNING SUPERVISOR Work Phone: [facility] Work Phone: 1996 diphtheria, tetanus toxoids and pertussis vaccine Pearl Josh WATCH TECHNICIAN.HOT DIP TINNING SUPERVISOR Work Phone: [facility] Work Phone: 1996 haemophilus influenz ae type b vaccine, HbOC conjugate Pearl Magnolia WATCH TECHNICIAN.HOT DIP TINNING SUPERVISOR Work Phone: [facility] 1996 hepatitis B vaccine, pediatric or pediatric/adolescent dosage Pearl Josh WATCH TECHNICIAN.HOT DIP TINNING SUPERVISOR Work Phone: [facility] 1996 trivalent poliovirus vaccine, live, oral Pearl Josh WATCH TECHNICIAN.HOT DIP TINNING SUPERVISOR Work Phone: [facility] Work Phone: 1996 hepatitis B vaccine, pediatric or pediatric/adolescent dosage Pearl Josh WATCH TECHNICIAN.[facility] Work Phone: [facility] Payers Date Payer Category Payer Unknown [employer] [id number] 2021-Present [phone] [address] [place] [address] PPO [id number] 2021 Unknown [employer] [id number] 2021-Present [phone] [address] [place] [address] PPO [id number] 2021 Unknown [id number] 1996 Unknown [id number] Social History Date Type Detail Facility Start: 03-18-2014 Tobacco smoking stat us UTIS Never smoked tobacco [facility] Work Phone: Start: 03-22-2022 Alcohol intake Current non-dr compensation analyst of alcohol (finding) [facility] Start: 11-22-2019 End: 01-31-2020 History SDOH Social Connections Phone 5 [facility] Start: 11-22-2019 History SDOH Social Connections Get Together 4 [facility] Start: 11-22-2019 End: 01-31-2020 History SDOH Social Connections Sabianism 2 [facility] Start: 11-22-2019 End: 01-31-2020 History SDOH Social Connections Meetings 1 [facility] Start: 11-22-2019 History SDOH Social Connections Living 8 [facility] Start: 11-22-2019 History SDOH Physica l Activity DPW 3 [facility] Start: 11-22-2019 History SDOH Physica l Activity MPS 6 [facility] Start: 11-22-2019 Education 16 [facility] Start: 1996 Sex Assigned At Not on file [facility] Start: 03-12-2022 End: 03-22-2022 Exposure to SARS-CoV-2 (event) Not sure [facility] Work Phone: Start: 03-18-2014 Tobacco use and exposure Smoke less tobacco non-user [facility] Progress note 03-24-2023 Note Date & Type Note Facility 03-24-2023 Note HNO ID: [id number] Author: Pearl Moreno APRN.HOT DIP TINNING SUPERVISOR Service: ? Author Type: Nurse Practitioner Type: Progress Notes Filed: 03/24/2023 4:45 PM Note Text: Fruit Receiver offered: Patient declines. Morataya is a 27 year old who presents for an annual gynecologic exam without complaints. Patient thinks she had a chemical in January of this year, she had a positive test at home and then had blood serum drawn a few days later and that was negative. Patient has checked ovulation with a home kit and received a positive result had about 20 days. Her and her are trying for , discussed with her if not after 12 months to follow-up with the doctor for further evaluation. menses: cycles every 25-30 days and 5-6 days of flow. Contraception: none HPV vaccine: Yes Last Pap: 03/29/2022 normal HPV: N/A History of abnormal pap: No Last mammogram: never Sexually active: Yes OB History T0 L0 SAB0 IAB0 Ectopic0 Multiple0 Live Births0 [employer] Supervisor History LMP: 03/13/2022, Having periods Age at Menarche: Age at First : Age at Menopause: [employer] Supervisor History Comments: Sexual Activity: Yes; Male Contraception: Pill PAST MEDICAL HISTORY Diagnosis Date PMH - PAST MEDICAL HISTORY OF 10/09/2002 normal color vision PMH - PAST MEDICAL HISTORY OF 10/28 started menses PAST SURGICAL HISTORY Procedure Laterality Date NONE FAMILY HISTORY Problem Relation Age of Onset None Mother None Father Cancer Other MATERNAL SIDE SOCIAL HISTORY Social History Tobacco Use Smoking status: Never Smokeless tobacco: Never Vaping Use Vaping Use: Never used Substance Use Topics Alcohol use: No Drug use: No REVIEW OF SYSTEMS Abdomen: No abdominal pain, nausea, vomiting, diarrhea, or constipation. No bloating, early satiety, indigestion, or increased flatulence. Bladder: No dysuria, gross hematuria, urinary frequency, urinary urgency, or incontinence. Breast: No breast lumps, nipple d/c, overlying skin changes, redness or skin retraction. Allergies and current medication updated:Yes EXAM: LMP 03/13/2022 GENERAL: pleasant, female in no apparent distress HEENT: Normocephalic, atraumatic, mucus membranes moist, and no lesions NECK: Supple, full range of motion, no adenopathy, and thyroid normal DERMATOLOGY: Normal, without lesions, non-icteric, and non-hirsute BREAST: soft, non-tender, symmetric, no dominant mass, normal nipple-areolar complex, no lymphadenopathy, and no nipple discharge CHEST: Normal inspiratory effort ABDOMEN: soft, non-tender, and no masses PELVIC: external genitalia normal, normal Bartholin's glands, urethra, [place]'s glands, no vulvar lesions, no cervical lesions, good vaginal support, physiologic discharge present, normal appearing perineal body and perianal region BIMANUAL: uterus normal size, shape and consistency, no adnexal masses, and non-tender RECTOVAGINAL: deferred. NEURO: alert and oriented x3,exam grossly non-focal EXTREMITIES: normal ASSESSMENT/PLAN: 1) Health maintenance: Pap/HPV up to date. Mammogram starting age 40. Nutrition, exercise and routine health maintenance exams reviewed. Calcium/Vitamin D supplementation information provided. 2) Contraception: none. Contraceptive options reviewed and information provided. 3) STD screening: Declined STD check. 4) Follow up one year or sooner as needed Pearl Moreno APRN.CNP [facility] Note 01-25-2023 Telephone Encounter - Mariela Mccloud RN - 01/25/2023 1:31 PM ESTTelephone Encounter - Pearl Moreno APRN.CNP - 01/25/2023 12:45 PM EST Note Date & Type Note Facility 01-25-2023 Miscellaneous Notes Formattin g of this note might be different from the original. Patient notified. Mariela Mccloud RN Order filed. Pearl Moreno APRN.CNP LMP 12/15/22. Had positive home UPT 1 week ago and then a negative one day. Blood work pending if appropriate. Ivy Reed RN documented in this encounter [facility] History of Present illness Narrative 03-22-2022 Pearl Moreno APRN.CNP - 03/22/2022 3:03 PM EDT Note Date & Type Note Facility 03-22-2022 History of Presen t illness Narrative Rafia is a 26 year old who presents for an annual gynecologic exam without complaints. Menses: cycles every 25-30 days and 5-6 days of flow. Contraception: none HPV vaccine: Yes Last Pap: 2017 normal HPV: negative History of abnormal pap: No Last mammogram: never Sexually active: Yes Pain with intercourse: No Postcoital bleeding: No OB History T0 L0 SAB0 IAB0 Ectopic0 Multiple0 Live Births0 [employer] Supervisor History LMP: 03/13/2022, Having periods Age at Menarche: Age at First : Age at Menopause: [employer] Supervisor History Comments: Sexual Activity: Yes; Male Contraception: Pill PAST MEDICAL HISTORY Diagnosis Date PMH - PAST MEDICAL HISTORY OF 10/09/2002 normal color vision PMH - PAST MEDICAL HISTORY OF 10/28 started menses PAST SURGICAL HISTORY Procedure Laterality Date NONE FAMILY HISTORY Problem Relation Age of Onset None Mother None Father Cancer Other MATERNAL SIDE SOCIAL HISTORY Social History Tobacco Use Smoking status: Never Smoker Smokeless tobacco: Never Used Vaping Use Vaping Use: Never used Substance Use Topics Alcohol use: No Drug use: No REVIEW OF SYSTEMS Abdomen: No abdominal pain, nausea, vomiting, diarrhea, or constipation. No bloating, early satiety, indigestion, or increased flatulence. Bladder: No dysuria, gross hematuria, urinary frequency, urinary urgency, or incontinence. Breast: No breast lumps, nipple d/c, overlying skin changes, redness or skin retraction. Allergies and current medication updated:Yes EXAM: Ht 5' 2.25 (1.58m) Wt 140 lb 9.6 oz (63.8kg) LMP 03/13/2022 BMI 25.51 kg/(m^2). GENERAL: pleasant, female in no apparent distress HEENT: Normocephalic, atraumatic, mucus membranes moist and no lesions NECK: Supple, full range of motion, no adenopathy and thyroid normal DERMATOLOGY: Normal, without lesions, non-icteric and non-hirsute BREAST: soft, non-tender, symmetric, no dominant mass, normal nipple-areolar complex, no lymphadenopathy and no nipple discharge CHEST: Normal inspiratory effort ABDOMEN: soft, non-tender and no masses PELVIC: external genitalia normal, normal Bartholin's glands, urethra, [place]'s glands, no vulvar lesions, no cervical lesions, good vaginal support, physiologic discharge present, normal appearing perineal body and perianal region BIMANUAL: uterus normal size, shape and consistency, no adnexal masses and non-tender RECTOVAGINAL: deferred. NEURO: alert and oriented x3,exam grossly non-focal EXTREMITIES: normal ASSESSMENT/PLAN: 1) Health maintenance: Pap done with reflex HPV. Mammogram starting age 40. Nutrition, exercise and routine health maintenance exams reviewed. Calcium/Vitamin D supplementation information provided. HPV vaccine: completed series 2) Contraception: none. Contraceptive options reviewed and information provided. 3) STD screening: Declined STD check. 4) Follow up one year or sooner as needed Pearl Moreon APRN.EVANGELISTA documented in this encounter [facility] Evaluation note Note Date & Type Note Facility documented in this encounter [facility] Evaluation note Note Date & Type Note Facility documented in this encounter [facility] Summary Purpose Family History No Family History Records FoundNo Family History Records Found Advance Directives No Advanced Directives Records FoundNo Advanced Directives Records Found Additional Source Comments Source Comments (unrecognize d section and content) In the event this informatio n is protected by the Federal Confidentiality of Alcohol and Drug Abuse Patient Records regulations: The Federal rules restrict any use of the information to criminally investigate or prosecute any alcohol or drug abuse patient.[facility] the event this information is protected by the Federal Confidentiality of Alcohol and Drug Abuse Patient Records regulations: The Federal rules restrict any use of the information to criminally investigate or prosecute any alcohol or drug abuse patient.[facility] Reason for Visit (unrecogniz ed section and content) Reason Comments Results INFORMATION SOURCE (unrecogn ized section and content) DATE CREATED AUTHOR AUTHOR'S ORGANIZ ATION 08/06/2023 [facility] FOR RECORDS PERTAINING TO PATIENTS WHO ARE OR HAVE BEEN ENROLLED IN A CHEMICAL DEPENDENCY/SUBSTANCEABUSE PROGRAM, SOME INFORMATION MAY BE OMITTED. This clinical summary was aggregated from multiple sources. Caution should be exercised in using it in the provision of clinical care. This summary normalizes information from multiple sources, and as a consequence, information in this document may materially change the coding, format and clinical context of patient data. In addition, data may be omitted in some cases. CLINICAL DECISIONS SHOULD BE BASED ON THE PRIMARY CLINICAL RECORDS. [facility]. provides no warranty or guarantee of the accuracy or completeness of information in this document.
[2023-12-08 17:13] LABS: Absolute Lymphocyte Count 2.59 X10^3/uL (0.83-4.51); Absolute Neutrophil Count 9.2 X10^3/uL (2.0-7.7); Basophil# 0.06 X10^3/uL; Basophil% 0.5 % (0-1); Eosinophil# 0.13 X10^3/uL; Hematocrit 33.7 % (37-47); Hemoglobin 11.1 g/dL (12.0-15.0); Lymphocyte # 2.59 X10^3/ul (0.83-4.51); Mean Corp Hgb Conc 32.9 g/dL (32-36); Mean Corpuscular Hgb 29.2 pg (27.0-32.0); Mean Corpuscular Volume 88.7 fL (81-99); Monocyte% 6.9 % (0-10); NRBC Flagged by Analyzer 0 % (0-5); Neutrophil # 9.21 X10^3/uL (2.7-7.7); Neutrophil % 71.1 % (47-70); Platelet Count 286 K/mm3 (150-450); RBC Distribution Width CV 12.7 % (11.6-14.6)
== END | disposition home or self-care (01) ==
LOC: LAB 16:16
PROVIDERS: Referring Provider Advanced Practice Midwife; Visit Provider Advanced Practice Midwife
DX: D64.9 Anemia, unspecified (principal)
CPT/HCPCS: 36415; 85025

== ENCOUNTER → 2023-12-08 | Outpatient (CLI) | payer OTHER, SELFPAY ==
--- OUTSIDE RECORDS SUMMARY | 2023-12-08 16:53 | XMS RPT_ITS | CCD ---
Author Name Unknown Address [address] [place] [address] Organization [facility] Care Team Providers Care Stull Installer Name Role Phone Unavailable Primary Care Provider [...] 03-22-2022 15:03-0400 Body height 158.1 cm Pearl [place] FLASH WELDING MACHINE OPERATOR.LEATHER TOOLER Work Phone: [facility] 03-22-2022 15:03-0400 Body weight 63.78 kg Pearl [place] FLASH WELDING MACHINE OPERATOR.LEATHER TOOLER Work Phone: [facility] 03-22-2022 15:03-0400 Diastolic blood pressure 60 mm[Hg] Pearl Moreno FLASH WELDING MACHINE OPERATOR.LEATHER TOOLER Work Phone: [facility] 03-22-2022 15:03-0400 Systolic blood pressure 102 mm[Hg] Pearl Moreno FLASH WELDING MACHINE OPERATOR.LEATHER TOOLER Work Phone: [facility] Encounters Encounter Date Encounter Type Care Provider Facility Start: 08-04-2023 End: 08-04-2023 ambulatory MD PRIMARY CARE [facility] Start: 03-24-2023 End: 03-25-2023 ambulatory PEARL CONRADF Facility:[facility] Start: 03-24-2023 Encounter for gynecological examination (general) (routine) without abnormal findings PEARL MORENO [facility] Start: 01-25-2023 End: 01-26-2023 ambulatory [facility] Facility:[facility] Start: 01-25-2023 Telephone encounter Pearl cruz FLASH WELDING MACHINE OPERATOR.LEATHER TOOLER Work Phone: OB/Gynecology Plan of Treatment Date Care Activity Detail Author Start: 03-22-2025 PAP TESTING PAP TESTING [facility] Start: 01-25-2023 End: 03-27-2023 Choriogonadotropin.beta subunit [Units/volume] in Serum or Plasma [facility] Work Phone: Immunizations Immunization Date Immunization Notes Care Provider Fa [facility] 12-10-2013 influenza virus vaccine, unspecified formulation Pearl Conradf FLASH WELDING MACHINE OPERATOR.LEATHER TOOLER Work Phone: [facility] Work Phone: 12-10-2013 Meningococcal, MCV4, unspecified conjugate formulation(groups A, C, Y and W-135) Pearl Moreno FLASH WELDING MACHINE OPERATOR.LEATHER TOOLER Work Phone: [facility] Work Phone: 10-24-2012 influenza virus vaccine, unspecified formulation Pearl [place] FLASH WELDING MACHINE OPERATOR.LEATHER TOOLER Work Phone: [facility] 09-27-2011 influenza virus vaccine, unspecified formulation Pearl Martincalf FLASH WELDING MACHINE OPERATOR.LEATHER TOOLER Work Phone: [facility] 12-24-2010 influenza virus vaccine, unspecified formulation Pearl Josh FLASH WELDING MACHINE OPERATOR.LEATHER TOOLER Work Phone: [facility] 09-17-2009 human papilloma viru s vaccine, quadrivalent Pearl Josh FLASH WELDING MACHINE OPERATOR.LEATHER TOOLER Work Phone: [facility] Work Phone: 05-19-2009 human papilloma viru s vaccine, quadrivalent Pearl [place] FLASH WELDING MACHINE OPERATOR.LEATHER TOOLER Work Phone: [facility] Work Phone: 05-19-2009 varicella virus vaccine Simon e [place] FLASH WELDING MACHINE OPERATOR.[facility] Work Phone: [facility] Work Phone: 03-14-2009 human papilloma viru s vaccine, quadrivalent Pearl Josh FLASH WELDING MACHINE OPERATOR.[facility] Work Phone: [facility] Work Phone: 09-24-2008 influenza virus vaccine, live, attenuated, for intranasal use Pearl Josh FLASH WELDING MACHINE OPERATOR.LEATHER TOOLER Work Phone: [facility] Work Phone: 12-05-2007 Meningococcal, MCV4, unspecified conjugate formulation(groups A, C, Y and W-135) Pearl [place] FLASH WELDING MACHINE OPERATOR.[facility] Work Phone: [facility] Work Phone: 12-05-2007 tetanus toxoid, redu tim diphtheria toxoid, and acellular pertussis vaccine, adsorbed Pearl [place] FLASH WELDING MACHINE OPERATOR.LEATHER TOOLER Work Phone: [facility] Work Phone: 09-20-2007 influenza virus vaccine, unspecified formulation Pearl [place] FLASH WELDING MACHINE OPERATOR.[facility] Work Phone: [facility] Work Phone: 09-10-2006 influenza virus vaccine, unspecified formulation Pearl Josh FLASH WELDING MACHINE OPERATOR.LEATHER TOOLER Work Phone: [facility] Work Phone: 09-24-2004 influenza virus vaccine, unspecified formulation Pearl Josh FLASH WELDING MACHINE OPERATOR.LEATHER TOOLER Work Phone: [facility] 10-09-2002 diphtheria, tetanus toxoids and acellular pertussis vaccine Pearl Josh FLASH WELDING MACHINE OPERATOR.LEATHER TOOLER Work Phone: [facility] Work Phone: 10-09-2002 varicella virus vaccine Simon e Josh FLASH WELDING MACHINE OPERATOR.LEATHER TOOLER Work Phone: [facility] Work Phone: 03-06-2002 haemophilus influenz ae type b vaccine, HbOC conjugate Pearl Josh FLASH WELDING MACHINE OPERATOR.LEATHER TOOLER Work Phone: [facility] 03-06-2002 measles, mumps and rubella virus vaccine Pearl [place] FLASH WELDING MACHINE OPERATOR.LEATHER TOOLER Work Phone: [facility] 03-06-2002 poliovirus vaccine, inactivated Pearl Josh FLASH WELDING MACHINE OPERATOR.LEATHER TOOLER Work Phone: [facility] 09-14-2000 measles, mumps and rubella virus vaccine Pearl [place] FLASH WELDING MACHINE OPERATOR.LEATHER TOOLER Work Phone: [facility] 12-05-1997 diphtheria, tetanus toxoids and pertussis vaccine Pearl Josh FLASH WELDING MACHINE OPERATOR.[facility] Work Phone: [facility] Work Phone: 05-09-1997 diphtheria, tetanus toxoids and pertussis vaccine Pearl Josh FLASH WELDING MACHINE OPERATOR.LEATHER TOOLER Work Phone: [facility] Work Phone: 05-09-1997 haemophilus influenz ae type b vaccine, HbOC conjugate Pearl [place] FLASH WELDING MACHINE OPERATOR.LEATHER TOOLER Work Phone: [facility] 05-09-1997 hepatitis B vaccine, pediatric or pediatric/adolescent dosage Pearl [place] FLASH WELDING MACHINE OPERATOR.LEATHER TOOLER Work Phone: [facility] 05-09-1997 trivalent poliovirus vaccine, live, oral Pearl [place] FLASH WELDING MACHINE OPERATOR.LEATHER TOOLER Work Phone: [facility] Work Phone: 02-14-1997 diphtheria, tetanus toxoids and pertussis vaccine Pearl [place] FLASH WELDING MACHINE OPERATOR.LEATHER TOOLER Work Phone: [facility] Work Phone: 02-14-1997 haemophilus influenz ae type b vaccine, HbOC conjugate Pearl Josh FLASH WELDING MACHINE OPERATOR.LEATHER TOOLER Work Phone: [facility] 02-14-1997 trivalent poliovirus vaccine, live, oral Pearl [place] FLASH WELDING MACHINE OPERATOR.LEATHER TOOLER Work Phone: [facility] Work Phone: 1996 diphtheria, tetanus toxoids and pertussis vaccine Pearl Josh FLASH WELDING MACHINE OPERATOR.LEATHER TOOLER Work Phone: [facility] Work Phone: 1996 haemophilus influenz ae type b vaccine, HbOC conjugate Pearl [place] FLASH WELDING MACHINE OPERATOR.LEATHER TOOLER Work Phone: [facility] 1996 hepatitis B vaccine, pediatric or pediatric/adolescent dosage Pearl Josh FLASH WELDING MACHINE OPERATOR.LEATHER TOOLER Work Phone: [facility] 1996 trivalent poliovirus vaccine, live, oral Pearl Josh FLASH WELDING MACHINE OPERATOR.LEATHER TOOLER Work Phone: [facility] Work Phone: 1996 hepatitis B vaccine, pediatric or pediatric/adolescent dosage Pearl Josh FLASH WELDING MACHINE OPERATOR.[facility] Work Phone: [facility] Payers Date Payer Category Payer Unknown [employer] [place] [employer] [id number] 2021-Present [phone] [address] [place] [address] PPO [id number] 2021 Unknown [employer] [place] [employer] [id number] 2021-Present [phone] [address] [place] [address] PPO [id number] 2021 Unknown [id number] 1996 Unknown [id number] Social History Date Type Detail Facility Start: 03-18-2014 Tobacco smoking stat us PAIS Never smoked tobacco [facility] Work Phone: Start: 03-22-2022 Alcohol intake Current non-dr penetration tester of alcohol (finding) [facility] Start: 11-22-2019 End: 01-31-2020 History SDOH Social Connections Phone 5 [facility] Start: 11-22-2019 History SDOH Social Connections Get Together 4 [facility] Start: 11-22-2019 End: 01-31-2020 History SDOH Social Connections Moravian 2 [facility] Start: 11-22-2019 End: 01-31-2020 History SDOH Social Connections Meetings 1 [facility] Start: 11-22-2019 History SDOH Social Connections Living 8 [facility] Start: 11-22-2019 History SDOH Physica l Activity DPW 3 [facility] Start: 11-22-2019 History SDOH Physica l Activity MPS 6 [facility] Start: 11-22-2019 Education 16 [facility] Start: 1995 Sex Assigned At Not on file C [facility] Start: 03-12-2022 End: 03-22-2022 Exposure to SARS-CoV-2 (event) Not sure [facility] Work Phone: Start: 03-18-2014 Tobacco use and exposure Smoke less tobacco non-user [facility] Progress note 03-24-2023 Note Date & Type Note Facility 03-24-2023 Note HNO ID: [id number] Author: Pearl Moreno APRN.LEATHER TOOLER Service: ? Author Type: Nurse Practitioner Type: Progress Notes Filed: 03/24/2023 4:45 PM Note Text: Solution Design Engineer offered: Patient declines. 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 LMP: 03/13/2022, Having periods Age at Menarche: Age at First : Age at Menopause: Structural Steel 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 Comments: Sexual Activity: Yes; Male Contraception: [...] external genitalia normal, normal Bartholin's glands, urethra, Lafontaine's glands, no vulvar lesions, no cervical lesions, [...] or sooner as needed Pearl Moreno APRN.CNP [facility] Note 01-25-2023 Telephone Encounter - Mariela [...] Ivy Reed RN documented in this encounter [facility] History of Present illness Narrative 03-22-2022 Pearl [...] L0 SAB0 IAB0 Ectopic0 Multiple0 Live Births0 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 Steel 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 LMP: 03/13/2022, Having periods Age at Menarche: Age at First : Age at Menopause: Structural Steel 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 Comments: Sexual Activity: Yes; Male Contraception: [...] external genitalia normal, normal Bartholin's glands, urethra, Lafontaine's glands, no vulvar lesions, no cervical lesions, [...] year or sooner as needed Pearl Moreno APRN.EVANGELISTA documented in this encounter [facility] Evaluation note Note Date & Type Note Facility documented in this encounter [facility] Evaluation note Note Date & Type Note Facility documented in this encounter [facility] Summary Purpose Family History No Family History [...] or prosecute any alcohol or drug abuse patient.[facility] the event this information is protected by the Federal Confidentiality of Alcohol and Drug Abuse Patient Records regulations: The Federal rules restrict any use of the information to criminally investigate or prosecute any alcohol or drug abuse patient.[facility] Reason for Visit (unrecogniz ed section and content) Reason Comments Results INFORMATION SOURCE (unrecogn ized section and content) DATE CREATED AUTHOR AUTHOR'S ORGANIZ ATION 08/06/2023 [facility] FOR RECORDS PERTAINING TO PATIENTS WHO [...] BE BASED ON THE PRIMARY CLINICAL RECORDS. [facility]. provides no warranty or guarantee of the accuracy or completeness of information in this document.
== END | disposition home or self-care (01) ==
LOC: LABSPEC 16:51
PROVIDERS: Referring Provider Advanced Practice Midwife; Visit Provider Advanced Practice Midwife
DX: Z34.90 Encounter for supervision of normal pregnancy, unspecified, unspecified trimester (principal)
CPT/HCPCS: 87081

== ENCOUNTER 2023-12-19 18:15 | Inpatient (IN) | payer OTHER, SELFPAY ==
[2023-12-19] VITALS (10 sets, daily range): BP systolic 127–142; BP diastolic 73–89; PULSE 82–90; TEMP 36.4–37.1; O2SAT 98; BMI 33.8
--- OUTSIDE RECORDS SUMMARY | 2023-12-19 17:04 | XMS RPT_ITS | CCD ---
Author Name Unknown Address [address] [place] [address] Organization [facility] Care Team Providers Care Surveyor Geophysical Prospecting Name Role Phone Unavailable Primary Care Provider [...] 03-22-2022 15:03-0400 Body height 158.1 cm Pearl [place] FURNITURE STAINER.APPLIER Work Phone: [facility] 03-22-2022 15:03-0400 Body weight 63.78 kg Pearl [place] FURNITURE STAINER.APPLIER Work Phone: [facility] 03-22-2022 15:03-0400 Diastolic blood pressure 60 mm[Hg] Pearl Moreno FURNITURE STAINER.APPLIER Work Phone: [facility] 03-22-2022 15:03-0400 Systolic blood pressure 102 mm[Hg] Pearl Moreno FURNITURE STAINER.APPLIER Work Phone: [facility] Encounters Encounter Date Encounter Type Care Provider Facility Start: 08-04-2023 End: 08-04-2023 ambulatory MD PRIMARY CARE [facility] Start: 03-24-2023 End: 03-25-2023 ambulatory PEARL CONRADF Facility:[facility] Start: 03-24-2023 Encounter for gynecological examination (general) (routine) without abnormal findings PEARL MORENO [facility] Start: 01-25-2023 End: 01-26-2023 ambulatory [facility] Facility:[facility] Start: 01-25-2023 Telephone encounter Pearl cruz FURNITURE STAINER.APPLIER Work Phone: OB/Gynecology Plan of Treatment Date Care Activity Detail Author Start: 03-22-2025 PAP TESTING PAP TESTING [facility] Start: 01-25-2023 End: 03-27-2023 Choriogonadotropin.beta subunit [Units/volume] in Serum or Plasma [facility] Work Phone: Immunizations Immunization Date Immunization Notes Care Provider Fa [facility] 12-10-2013 influenza virus vaccine, unspecified formulation Pearl Conradf FURNITURE STAINER.APPLIER Work Phone: [facility] Work Phone: 12-10-2013 Meningococcal, MCV4, unspecified conjugate formulation(groups A, C, Y and W-135) Pearl Moreno FURNITURE STAINER.APPLIER Work Phone: [facility] Work Phone: 10-24-2012 influenza virus vaccine, unspecified formulation Pearl [place] FURNITURE STAINER.APPLIER Work Phone: [facility] 09-27-2011 influenza virus vaccine, unspecified formulation Pearl Martincalf FURNITURE STAINER.APPLIER Work Phone: [facility] 12-24-2010 influenza virus vaccine, unspecified formulation Pearl Josh FURNITURE STAINER.APPLIER Work Phone: [facility] 09-17-2009 human papilloma viru s vaccine, quadrivalent Pearl Josh FURNITURE STAINER.APPLIER Work Phone: [facility] Work Phone: 05-19-2009 human papilloma viru s vaccine, quadrivalent Pearl [place] FURNITURE STAINER.APPLIER Work Phone: [facility] Work Phone: 05-19-2009 varicella virus vaccine Simon e [place] FURNITURE STAINER.[facility] Work Phone: [facility] Work Phone: 03-14-2009 human papilloma viru s vaccine, quadrivalent Pearl Josh FURNITURE STAINER.[facility] Work Phone: [facility] Work Phone: 09-24-2008 influenza virus vaccine, live, attenuated, for intranasal use Pearl Josh FURNITURE STAINER.APPLIER Work Phone: [facility] Work Phone: 12-05-2007 Meningococcal, MCV4, unspecified conjugate formulation(groups A, C, Y and W-135) Pearl [place] FURNITURE STAINER.[facility] Work Phone: [facility] Work Phone: 12-05-2007 tetanus toxoid, redu tim diphtheria toxoid, and acellular pertussis vaccine, adsorbed Pearl [place] FURNITURE STAINER.APPLIER Work Phone: [facility] Work Phone: 09-20-2007 influenza virus vaccine, unspecified formulation Pearl [place] FURNITURE STAINER.[facility] Work Phone: [facility] Work Phone: 09-10-2006 influenza virus vaccine, unspecified formulation Pearl Josh FURNITURE STAINER.APPLIER Work Phone: [facility] Work Phone: 09-24-2004 influenza virus vaccine, unspecified formulation Pearl Josh FURNITURE STAINER.APPLIER Work Phone: [facility] 10-09-2002 diphtheria, tetanus toxoids and acellular pertussis vaccine Pearl Josh FURNITURE STAINER.APPLIER Work Phone: [facility] Work Phone: 10-09-2002 varicella virus vaccine Simon e Josh FURNITURE STAINER.APPLIER Work Phone: [facility] Work Phone: 03-06-2002 haemophilus influenz ae type b vaccine, HbOC conjugate Pearl Josh FURNITURE STAINER.APPLIER Work Phone: [facility] 03-06-2002 measles, mumps and rubella virus vaccine Pearl [place] FURNITURE STAINER.APPLIER Work Phone: [facility] 03-06-2002 poliovirus vaccine, inactivated Pearl Josh FURNITURE STAINER.APPLIER Work Phone: [facility] 09-14-2000 measles, mumps and rubella virus vaccine Pearl [place] FURNITURE STAINER.APPLIER Work Phone: [facility] 12-05-1997 diphtheria, tetanus toxoids and pertussis vaccine Pearl Josh FURNITURE STAINER.[facility] Work Phone: [facility] Work Phone: 05-09-1997 diphtheria, tetanus toxoids and pertussis vaccine Pearl Josh FURNITURE STAINER.APPLIER Work Phone: [facility] Work Phone: 05-09-1997 haemophilus influenz ae type b vaccine, HbOC conjugate Pearl [place] FURNITURE STAINER.APPLIER Work Phone: [facility] 05-09-1997 hepatitis B vaccine, pediatric or pediatric/adolescent dosage Pearl [place] FURNITURE STAINER.APPLIER Work Phone: [facility] 05-09-1997 trivalent poliovirus vaccine, live, oral Eparl [place] FURNITURE STAINER.APPLIER Work Phone: [facility] Work Phone: 02-14-1997 diphtheria, tetanus toxoids and pertussis vaccine Pearl [place] FURNITURE STAINER.APPLIER Work Phone: [facility] Work Phone: 02-14-1997 haemophilus influenz ae type b vaccine, HbOC conjugate Pearl Josh FURNITURE STAINER.APPLIER Work Phone: [facility] 02-14-1997 trivalent poliovirus vaccine, live, oral Pearl [place] FURNITURE STAINER.APPLIER Work Phone: [facility] Work Phone: 1996 diphtheria, tetanus toxoids and pertussis vaccine Pearl Josh FURNITURE STAINER.APPLIER Work Phone: [facility] Work Phone: 1996 haemophilus influenz ae type b vaccine, HbOC conjugate Pearl [place] FURNITURE STAINER.APPLIER Work Phone: [facility] 1996 hepatitis B vaccine, pediatric or pediatric/adolescent dosage Pearl Josh FURNITURE STAINER.APPLIER Work Phone: [facility] 1996 trivalent poliovirus vaccine, live, oral Pearl Josh FURNITURE STAINER.APPLIER Work Phone: [facility] Work Phone: 1996 hepatitis B vaccine, pediatric or pediatric/adolescent dosage Pearl Josh FURNITURE STAINER.[facility] Work Phone: [facility] Payers Date Payer Category Payer Unknown [employer] [place] [employer] [id number] 2021-Present [phone] [address] [place] [address] PPO [id number] 2021 Unknown [employer] [place] [employer]ED [id number] 2021-Present [phone] [address] [place] [address] PPO [id number] 2021 Unknown [id number] 1996 Unknown [id number] Social History Date Type Detail Facility Start: 03-18-2014 Tobacco smoking stat us COIS Never smoked tobacco [facility] Work Phone: Start: 03-22-2022 Alcohol intake Current non-dr cushion sewer of alcohol (finding) [facility] Start: 11-22-2019 End: 01-31-2020 History SDOH Social Connections Phone 5 [facility] Start: 11-22-2019 History SDOH Social Connections Get Together 4 [facility] Start: 11-22-2019 End: 01-31-2020 History SDOH Social Connections Rastafari 2 [facility] Start: 11-22-2019 End: 01-31-2020 History SDOH Social Connections Meetings 1 [facility] Start: 11-22-2019 History SDOH Social Connections Living 8 [facility] Start: 11-22-2019 History SDOH Physica l Activity DPW 3 [facility] Start: 11-22-2019 History SDOH Physica l Activity MPS 6 [facility] Start: 11-22-2019 Education 16 [facility] Start: 1995 Sex Assigned At Not on file C [facility] Start: 03-12-2022 End: 03-22-2022 Exposure to SARS-CoV-2 (event) Not sure [facility] Work Phone: Start: 03-18-2014 Tobacco use and exposure Smoke less tobacco non-user [facility] Progress note 03-24-2023 Note Date & Type Note Facility 03-24-2023 Note HNO ID: [id number] Author: Pearl Moreno APRN.APPLIER Service: ? Author Type: Nurse Practitioner Type: Progress Notes Filed: 03/24/2023 4:45 PM Note Text: Social Contact Worker offered: Patient declines. 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 Births0 Scouring Machine Operator History LMP: 03/13/2022, Having periods Age at Menarche: Age at First : Age at Menopause: Scouring Machine Operator History Comments: Sexual Activity: Yes; Male Contraception: [...] external genitalia normal, normal Bartholin's glands, urethra, [place]'s glands, no vulvar lesions, no cervical lesions, [...] or sooner as needed Pearl Moreno APRN.CNP [facility] Note 01-25-2023 Telephone Encounter - Mariela [...] Ivy Reed RN documented in this encounter [facility] History of Present illness Narrative 03-22-2022 Pearl [...] L0 SAB0 IAB0 Ectopic0 Multiple0 Live Births0 Scouring Machine Operator History LMP: 03/13/2022, Having periods Age at Menarche: Age at First : Age at Menopause: Scouring Machine Operator History Comments: Sexual Activity: Yes; Male Contraception: [...] external genitalia normal, normal Bartholin's glands, urethra, [place]'s glands, no vulvar lesions, no cervical lesions, [...] Pearl Moreno APRN.EVANGELISTA documented in this encounter [facility] Evaluation note Note Date & Type Note Facility documented in this encounter [facility] Evaluation note Note Date & Type Note Facility documented in this encounter [facility] Summary Purpose Family History No Family History [...] or prosecute any alcohol or drug abuse patient.[facility] the event this information is protected by the Federal Confidentiality of Alcohol and Drug Abuse Patient Records regulations: The Federal rules restrict any use of the information to criminally investigate or prosecute any alcohol or drug abuse patient.[facility] Reason for Visit (unrecogniz ed section and content) Reason Comments Results INFORMATION SOURCE (unrecogn ized section and content) DATE CREATED AUTHOR AUTHOR'S ORGANIZ ATION 08/06/2023 [facility] FOR RECORDS PERTAINING TO PATIENTS WHO [...] BE BASED ON THE PRIMARY CLINICAL RECORDS. [facility]. provides no warranty or guarantee of the accuracy or completeness of information in this document.
[2023-12-19 17:42] LABS: AST(SGOT) 15 U/L (15-37); Alanine Aminotransfer ALT/SGPT 17 U/L (13-56); Creatinine, Serum 0.62 mg/dL (0.55-1.02); EST Glomerular Filtration Rate 123 mL/min (>60); Est Glom Filt Rate - Afr Amer 149 mL/min (>60); Uric Acid 4.9 mg/dL (2.6-6.0)
[2023-12-19 17:52] LABS: Protein:Creat Ratio 472 mg/g CRE (0-200)
[2023-12-19 17:54] LABS: Hemoglobin 10.8 g/dL (12.0-15.0); Mean Corp Hgb Conc 33.8 g/dL (32-36); Mean Corpuscular Hgb 29.5 pg (27.0-32.0); Mean Corpuscular Volume 87.4 fL (81-99); Mean Platelet Vol. 10.2 fl (6.2-12.0); Platelet Count 289 K/mm3 (150-450); RBC Distribution Width CV 12.7 % (11.6-14.6); RBC Distribution Width SD 40.1 fl (35.1-43.9); Red Blood Count 3.66 M/mm3 (4.2-5.4); White Blood Count 11.8 K/mm3 (4.4-11.0)
--- OUTSIDE RECORDS SUMMARY | 2023-12-19 18:25 | XMS RPT_ITS | CCD ---
Author Name Unknown Address [address] [place] [address] Organization [facility] Care Team Providers Care Family Protection Specialist Name Role Phone Unavailable Primary Care Provider [...] 03-22-2022 15:03-0400 Body height 158.1 cm Pearl Philadelphia PHOTOGRAMMETRIC TECHNICIAN.EXPERIMENTAL DISPLAY BUILDER Work Phone: [facility] 03-22-2022 15:03-0400 Body weight 63.78 kg Pearl Philadelphia PHOTOGRAMMETRIC TECHNICIAN.EXPERIMENTAL DISPLAY BUILDER Work Phone: [facility] 03-22-2022 15:03-0400 Diastolic blood pressure 60 mm[Hg] Pearl Moreno PHOTOGRAMMETRIC TECHNICIAN.EXPERIMENTAL DISPLAY BUILDER Work Phone: [facility] 03-22-2022 15:03-0400 Systolic blood pressure 102 mm[Hg] Pearl Moreno PHOTOGRAMMETRIC TECHNICIAN.EXPERIMENTAL DISPLAY BUILDER Work Phone: [facility] Encounters Encounter Date Encounter Type Care Provider Facility Start: 08-04-2023 End: 08-04-2023 ambulatory MD PRIMARY CARE [facility] Start: 03-24-2023 End: 03-25-2023 ambulatory PEARL CONRADF Facility:[facility] Start: 03-24-2023 Encounter for gynecological examination (general) (routine) without abnormal findings PEARL MORENO [facility] Start: 01-25-2023 End: 01-26-2023 ambulatory [facility] Facility:[facility] Start: 01-25-2023 Telephone encounter Pearl cruz PHOTOGRAMMETRIC TECHNICIAN.EXPERIMENTAL DISPLAY BUILDER Work Phone: OB/Gynecology Plan of Treatment Date Care Activity Detail Author Start: 03-22-2025 PAP TESTING PAP TESTING [facility] Start: 01-25-2023 End: 03-27-2023 Choriogonadotropin.beta subunit [Units/volume] in Serum or Plasma [facility] Work Phone: Immunizations Immunization Date Immunization Notes Care Provider Fa [facility] 12-10-2013 influenza virus vaccine, unspecified formulation Pearl Conradf PHOTOGRAMMETRIC TECHNICIAN.EXPERIMENTAL DISPLAY BUILDER Work Phone: [facility] Work Phone: 12-10-2013 Meningococcal, MCV4, unspecified conjugate formulation(groups A, C, Y and W-135) Pearl Moreno PHOTOGRAMMETRIC TECHNICIAN.EXPERIMENTAL DISPLAY BUILDER Work Phone: [facility] Work Phone: 10-24-2012 influenza virus vaccine, unspecified formulation Pearl Philadelphia PHOTOGRAMMETRIC TECHNICIAN.EXPERIMENTAL DISPLAY BUILDER Work Phone: [facility] 09-27-2011 influenza virus vaccine, unspecified formulation Pearl Martincalf PHOTOGRAMMETRIC TECHNICIAN.EXPERIMENTAL DISPLAY BUILDER Work Phone: [facility] 12-24-2010 influenza virus vaccine, unspecified formulation Pearl Josh PHOTOGRAMMETRIC TECHNICIAN.EXPERIMENTAL DISPLAY BUILDER Work Phone: [facility] 09-17-2009 human papilloma viru s vaccine, quadrivalent Pearl Josh PHOTOGRAMMETRIC TECHNICIAN.EXPERIMENTAL DISPLAY BUILDER Work Phone: [facility] Work Phone: 05-19-2009 human papilloma viru s vaccine, quadrivalent Pearl Philadelphia PHOTOGRAMMETRIC TECHNICIAN.EXPERIMENTAL DISPLAY BUILDER Work Phone: [facility] Work Phone: 05-19-2009 varicella virus vaccine Simon e [place] PHOTOGRAMMETRIC TECHNICIAN.[facility] Work Phone: [facility] Work Phone: 03-14-2009 human papilloma viru s vaccine, quadrivalent Pearl Josh PHOTOGRAMMETRIC TECHNICIAN.[facility] Work Phone: [facility] Work Phone: 09-24-2008 influenza virus vaccine, live, attenuated, for intranasal use Pearl Josh PHOTOGRAMMETRIC TECHNICIAN.EXPERIMENTAL DISPLAY BUILDER Work Phone: [facility] Work Phone: 12-05-2007 Meningococcal, MCV4, unspecified conjugate formulation(groups A, C, Y and W-135) Pearl Philadelphia PHOTOGRAMMETRIC TECHNICIAN.[facility] Work Phone: [facility] Work Phone: 12-05-2007 tetanus toxoid, redu tim diphtheria toxoid, and acellular pertussis vaccine, adsorbed Pearl Philadelphia PHOTOGRAMMETRIC TECHNICIAN.EXPERIMENTAL DISPLAY BUILDER Work Phone: [facility] Work Phone: 09-20-2007 influenza virus vaccine, unspecified formulation Pearl Philadelphia PHOTOGRAMMETRIC TECHNICIAN.[facility] Work Phone: [facility] Work Phone: 09-10-2006 influenza virus vaccine, unspecified formulation Pearl Josh PHOTOGRAMMETRIC TECHNICIAN.EXPERIMENTAL DISPLAY BUILDER Work Phone: [facility] Work Phone: 09-24-2004 influenza virus vaccine, unspecified formulation Pearl Josh PHOTOGRAMMETRIC TECHNICIAN.EXPERIMENTAL DISPLAY BUILDER Work Phone: [facility] 10-09-2002 diphtheria, tetanus toxoids and acellular pertussis vaccine Pearl Josh PHOTOGRAMMETRIC TECHNICIAN.EXPERIMENTAL DISPLAY BUILDER Work Phone: [facility] Work Phone: 10-09-2002 varicella virus vaccine Simon e Josh PHOTOGRAMMETRIC TECHNICIAN.EXPERIMENTAL DISPLAY BUILDER Work Phone: [facility] Work Phone: 03-06-2002 haemophilus influenz ae type b vaccine, HbOC conjugate Pearl Josh PHOTOGRAMMETRIC TECHNICIAN.EXPERIMENTAL DISPLAY BUILDER Work Phone: [facility] 03-06-2002 measles, mumps and rubella virus vaccine Pearl Philadelphia PHOTOGRAMMETRIC TECHNICIAN.EXPERIMENTAL DISPLAY BUILDER Work Phone: [facility] 03-06-2002 poliovirus vaccine, inactivated Pearl Josh PHOTOGRAMMETRIC TECHNICIAN.EXPERIMENTAL DISPLAY BUILDER Work Phone: [facility] 09-14-2000 measles, mumps and rubella virus vaccine Pearl Philadelphia PHOTOGRAMMETRIC TECHNICIAN.EXPERIMENTAL DISPLAY BUILDER Work Phone: [facility] 12-05-1997 diphtheria, tetanus toxoids and pertussis vaccine Pearl Josh PHOTOGRAMMETRIC TECHNICIAN.[facility] Work Phone: [facility] Work Phone: 05-09-1997 diphtheria, tetanus toxoids and pertussis vaccine Pearl Josh PHOTOGRAMMETRIC TECHNICIAN.EXPERIMENTAL DISPLAY BUILDER Work Phone: [facility] Work Phone: 05-09-1997 haemophilus influenz ae type b vaccine, HbOC conjugate Pearl Philadelphia PHOTOGRAMMETRIC TECHNICIAN.EXPERIMENTAL DISPLAY BUILDER Work Phone: [facility] 05-09-1997 hepatitis B vaccine, pediatric or pediatric/adolescent dosage Pearl Philadelphia PHOTOGRAMMETRIC TECHNICIAN.EXPERIMENTAL DISPLAY BUILDER Work Phone: [facility] 05-09-1997 trivalent poliovirus vaccine, live, oral Pearl Philadelphia PHOTOGRAMMETRIC TECHNICIAN.EXPERIMENTAL DISPLAY BUILDER Work Phone: [facility] Work Phone: 02-14-1997 diphtheria, tetanus toxoids and pertussis vaccine Pearl Philadelphia PHOTOGRAMMETRIC TECHNICIAN.EXPERIMENTAL DISPLAY BUILDER Work Phone: [facility] Work Phone: 02-14-1997 haemophilus influenz ae type b vaccine, HbOC conjugate Pearl Josh PHOTOGRAMMETRIC TECHNICIAN.EXPERIMENTAL DISPLAY BUILDER Work Phone: [facility] 02-14-1997 trivalent poliovirus vaccine, live, oral Pearl Philadelphia PHOTOGRAMMETRIC TECHNICIAN.EXPERIMENTAL DISPLAY BUILDER Work Phone: [facility] Work Phone: 1996 diphtheria, tetanus toxoids and pertussis vaccine Pearl Josh PHOTOGRAMMETRIC TECHNICIAN.EXPERIMENTAL DISPLAY BUILDER Work Phone: [facility] Work Phone: 1996 haemophilus influenz ae type b vaccine, HbOC conjugate Pearl Philadelphia PHOTOGRAMMETRIC TECHNICIAN.EXPERIMENTAL DISPLAY BUILDER Work Phone: [facility] 1996 hepatitis B vaccine, pediatric or pediatric/adolescent dosage Pearl Josh PHOTOGRAMMETRIC TECHNICIAN.EXPERIMENTAL DISPLAY BUILDER Work Phone: [facility] 1996 trivalent poliovirus vaccine, live, oral Pearl Josh PHOTOGRAMMETRIC TECHNICIAN.EXPERIMENTAL DISPLAY BUILDER Work Phone: [facility] Work Phone: 1996 hepatitis B vaccine, pediatric or pediatric/adolescent dosage Pearl Josh PHOTOGRAMMETRIC TECHNICIAN.[facility] Work Phone: [facility] Payers Date Payer Category Payer Unknown [employer] [id number] 2021-Present [phone] [address] [place] [address] PPO [id number] 2021 Unknown [employer] [id number] 2021-Present [phone] [address] [place] [address] PPO [id number] 2021 Unknown [id number] 1996 Unknown [id number] Social History Date Type Detail Facility Start: 03-18-2014 Tobacco smoking stat us KYIS Never smoked tobacco [facility] Work Phone: Start: 03-22-2022 Alcohol intake Current non-dr contact manager of alcohol (finding) [facility] Start: 11-22-2019 End: 01-31-2020 History SDOH Social Connections Phone 5 [facility] Start: 11-22-2019 History SDOH Social Connections Get Together 4 [facility] Start: 11-22-2019 End: 01-31-2020 History SDOH Social Connections Gnosticist 2 [facility] Start: 11-22-2019 End: 01-31-2020 History SDOH Social Connections Meetings 1 [facility] Start: 11-22-2019 History SDOH Social Connections Living 8 [facility] Start: 11-22-2019 History SDOH Physica l Activity DPW 3 [facility] Start: 11-22-2019 History SDOH Physica l Activity MPS 6 [facility] Start: 11-22-2019 Education 16 [facility] Start: 1995 Sex Assigned At Not on file [facility] Start: 03-12-2022 End: 03-22-2022 Exposure to SARS-CoV-2 (event) Not sure [facility] Work Phone: Start: 03-18-2014 Tobacco use and exposure Smoke less tobacco non-user [facility] Progress note 03-24-2023 Note Date & Type Note Facility 03-24-2023 Note HNO ID: [id number] Author: Pearl Moreno APRN.EXPERIMENTAL DISPLAY BUILDER Service: ? Author Type: Nurse Practitioner Type: Progress Notes Filed: 03/24/2023 4:45 PM Note Text: Master Of Ceremonies offered: Patient declines. 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 History LMP: 03/13/2022, Having periods Age at Menarche: Age at First : Age at Menopause: Farm Management Agent History Comments: Sexual Activity: Yes; Male Contraception: [...] external genitalia normal, normal Bartholin's glands, urethra, Lyle's glands, no vulvar lesions, no cervical lesions, [...] APRN.EVANGELISTA documented in this encounter [facility] Evaluation note Note Date & Type Note Facility documented in this encounter [facility] Evaluation note Note Date & Type Note Facility documented in this encounter [facility] Summary Purpose Family History No Family History [...] any alcohol or drug abuse [facility] the event this information is protected by the Federal Confidentiality of Alcohol and Drug Abuse Patient Records regulations: The Federal rules restrict any use of the information to criminally investigate or prosecute any alcohol or drug abuse patient.[facility] Reason for Visit (unrecogniz ed section and content) Reason Comments Results INFORMATION SOURCE (unrecogn ized section and content) DATE CREATED AUTHOR AUTHOR'S ORGANIZ ATION 08/06/2023 [facility] FOR RECORDS PERTAINING TO PATIENTS WHO ARE [...] BE BASED ON THE PRIMARY CLINICAL RECORDS. [facility] provides no warranty or guarantee of the accuracy or completeness of information in this document.
[2023-12-19] MEDS: miSOPROStol 25 MCG TABLET VAGINAL (18:46)
[2023-12-19] MEDS: Mag Hydrox/Al Hydrox/Simeth 30 ML UDC PO (19:18)
[2023-12-19 19:22] LABS: Syphilis Antibodies Non-reactive
[2023-12-19] MEDS: Lactated Ringers 1,000 ML 50 ML IV (23:30)
[2023-12-19] MEDS: 0.9% Normal Saline Single 100 ML IV.SOLN. INTRA-UTER (23:36)
[2023-12-20] VITALS (50 sets, daily range): BP systolic 113–157; BP diastolic 57–99; PULSE 75–106; RESP 16–18; TEMP 36.5–37.5; O2SAT 93–100
--- NOTE | 2023-12-20 00:10 | HP.PCM.OB_ITS ---
HPI - General General Date of Admission: 12/19/23 Date of Service: 12/19/23 HPI Narrative PIA VIEIRA, is a 28 F who presents at 38.3 with elevated BP in office. denied headaches, visual changes or ruq pain. labs with elevated p:c ratio. Maternal Data Information THADDEUS Calculator Estimated Delivery Date Method Current WG Current Estimate 12/30/23 LMP (Certain) 38w 4d Other Estimates 12/31/23 Ultrasound #1 38w 3d PFSH PFSH Medical History (Updated 12/20/23 @ 00:15 by Brisa Cheng CNM) Anemia Chemical Pre-eclampsia Home Medications multivitamin no.47-iron fum 27 mg-folate no.1 1 mg-dha 300 mg capsule (PNV-DHA) 1 cap PO DAILY vitamin 05/26/23 [History Last Taken 12/19/23 15:00 1 cap] Allergy/AdvReac Type Severity Reaction Status Date / Time Latex, Natural Rubber Allergy Mild Itching Verified 12/19/23 17:21 Family History Grandmother Breast cancer Maternal- Great Grandmother Surgical History S/P laparoscopic appendectomy Social History adopted: No household members: spouse current occupational status: employed 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 [employer] current occupational exposures/hazards: No pets and animals: Yes pets and animals: dog(s) history of recent travel: No sexually active: Yes Smoking Status: Never smoker alcohol intake: never substance use type: does not use well-balanced diet: daily or most days caffeine: No eating out: 1-3 times/week during the past year weight has: remained stable what type of physical activity do you participate in: weight training frequency: 3-4 times per week duration: 45-60 minutes/day ralf/jainism: None seatbelt use: always do you feel safe at home: Yes additional social history: [place]- [place] History 2 Elective abortions Hx Para 0 Spontaneous abortions 1 Hx # Term Pregnancies Ectopic pregnancies Hx # Pregnancies Multiple births # of living children 0 Past Pregnancies Del. Date Name GA/Weeks Outcome Route Bth Weight Gen Labor Lgth Anesthesia Del Locatn Provider FOB Unknown 01/26/23 chemical Visit Details Expected Delivery Route/Plan Labor Preferences- CB/BF classes: [] labor support person: timbo labor intervention preferences: unmedicated but open to epidural pain management options preferred: [] cut cord/dad catch: [] : yes PP control planned: [] discussed possible routes of delivery and associated risks: [] special requests: [] Plans Covid status: discussed Flu vaccine: discussed Tdap vaccine:declined Rhogam: NA LARC form signed: completed movement and labor precautions reviewed. Problem list reviewed and updated with the most current plan of care details and appropriate orders placed. Relevant counseling for the gestational age provided. Continue routine care and follow up unless otherwise noted in visit notes/problem list details OB Flowsheet Initial Weight: Not Recorded Date -?-?-?-?-?-?-?-?-?-?-?-?- EGA Weight BP Urine Prot -?-?-?-?-?-?-?-?-?-?-?-?- Glucose FHR FuHt Pres Dilation -?-?-?-?-?-?-?-?-?-?-?-?- Effaced St Visit Note 06/06/23 -?-?-?-?-?-?-?-?-?-?-?-?- 10w 3d 145 lb 6 oz 128/88 -?-?-?-?-?-?-?-?-?-?-?-?- 160 -?-?-?-?-?-?-?-?-?-?-?-?- SM- CRL unclear may be off 7-10 days 07/05/23 -?-?-?-?-?-?-?-?-?-?-?-?- 14w 4d 143 lb 8 oz 116/79 116/79 Negative -?-?-?-?-?-?-?-?-?-?-?-?- Negative 165 -?-?-?-?-?-?-?-?-?-?-?-?- KW- no vb/crampi ng. having RLQ pain with vomiting and rebound tenderness. sent to ER for R/O appendicitis. KW- no vb/cramping. anatomy US ordered. having RLQ pain with vomiting and rebound tenderness. sent to ER for R/O appendicitis. 07/08/23 -?-?-?-?-?-?-?-?-?-?-?-?- 15w 0d 142 lb 2 oz 112/76 Nega tive -?-?-?-?-?-?-?-?-?-?-?-?- Negative 156 -?-?-?-?-?-?-?-?-?-?-?-?- JV- bedside scan performed for patient peace of mind. She is status post laparoscopic appendectomy and is feeling much better. 08/03/23 -?-?-?-?-?-?-?-?-?-?-?-?- 18w 5d 148 lb 2 oz 127/77 Nega tive -?-?-?-?-?-?-?-?-?--?-?-?- Negative 144 -?-?-?-?-?-?-?-?-?-?-?-?- JV- anatomy scan ordered but it is in [place]. No complaints. 08/30/23 -?-?-?-?-?-?-?-?-?-?-?-?- 22w 4d 156 lb 8 oz 116/78 Nega tive -?-?-?-?-?-?-?-?-?-?-?-?- Negative 149 -?-?-?-?-?-?-?-?-?-?-?-?- -No VB, LOF. G ood FM. Feels well now and denies concerns 09/28/23 -?-?-?-?-?-?-?-?-?-?-?-?- 26w 5d 161 lb 8 oz 120/86 Nega tive -?-?-?-?-?-?-?-?-?-?-?-?- Negative 150 -?-?-?--?-?-?-?-?-?-?-?-?- LC- no vb/ctx/lo f. good fm.will add iron supplement and recheck cbc in 4 weeks. passed glucose. larc completed. 10/26/23 -?-?-?-?-?-?-?-?-?-?-?-?- 30w 5d 171 lb 8 oz 113/64 Nega tive -?-?-?-?-?-?-?-?-?-?-?-?- Negative 140 30 -?-?-?-?-?-?-?-?-?-?-?-?- LC- no vb/ctx/lo f. good fm. will change iron supplement to floradix and recheck in 4 weeks. 11/09/23 -?-?-?-?-?-?-?-?-?-?-?-?- 32w 5d 176 lb 8 oz 120/82 -?-?-?-?-?-?-?-?-?-?-?-?- 139 33 -?-?-?-?-?-?-?-?-?-?-?-?- JV- no lof, vagi nal bleeding, or dec fm. rpt cbc next visit. has baby shower between and 11/24/23 -?-?-?-?-?-?-?-?-?-?-?-?- 34w 6d 173 lb 8 oz 116/79 Nega tive -?-?-?-?-?-?-?-?-?-?-?-?- Negative 145 35 -?-?-?-?-?-?-?-?-?-?-?-?- kw-no vb/lof/ctx . good fm. CBC ordered. GBS next visit. labor precautions 12/08/23 -?-?-?-?-?-?-?-?-?-?-?-?- 36w 6d 183 lb 129/78 Negative -?-?-?-?-?-?-?-?-?-?-?-?- Negative 135 37 Cephalic 1 -?-?-?-?-?-?-?-?-?-?-?-?- 50 -1 kw-no vb/l of/ctx. good fm. GBS today. CBC today after appt 12/13/23 -?-?-?-?-?-?-?-?-?-?-?-?- 37w 4d 185 lb 131/87 Negative -?-?-?-?-?-?-?-?-?-?-?-?- Negative 135 38 Cephalic -?-?-?-?-?-?-?-?-?-?-?-?- SM- no vb lof go od fm no regular ctx 12/19/23 -?-?-?-?-?-?-?-?-?-?-?-?- 38w 3d 187 lb 131/90 Negative -?-?-?-?-?-?-?-?-?-?-?-?- Negative 147 39 Cephalic 1 .5 1 -?-?-?-?-?-?-?-?-?-?-?-?- 70 -2 JV- no lof , vaginal bleeding, or dec fm. was having contractions last week now stopped. Rpt bp was 140 ROS Cardiovascular Cardiovascular: Denies abdominal pain, chest pain, diaphoresis or dyspnea Respiratory/Chest Respiratory/Chest: Denies change in mental status, chest congestion, chest tightness, cough, shortness of breath at rest, shortness of breath with exertion, breast mass, breast pain, breast skin changes, breast swelling, change in breast shape or nipple discharge Genitourinary Genitourinary: Reports change in urinary stream Musculoskeletal Musculoskeletal: Reports none Integumentary Integumentary: Reports none Neurologic Neurologic: Reports none Psychiatric Psychiatric: Reports none Endocrine Endocrinology: Reports none Hematologic/Lymphatic Hematologic/Lymphatic: Reports none Allergic/Immunologic Allergic/Immunologic: Reports none Vital Signs Vital Signs Vital Signs: 12/19/23 17:00 12/19/23 17:00 12/19/23 17:00 Temperature Temperature Source Temporal Pulse Rate 86 Blood Pressure BP Systolic BP Diastolic Pulse Ox 98 12/19/23 17:00 12/19/23 17:13 12/19/23 17:13 Temperature 98.1 F Temperature Source Pulse Rate 89 Blood Pressure 142/88 H BP Systolic 142 BP Diastolic 88 Pulse Ox 12/19/23 17:29 12/19/23 17:29 12/19/23 17:44 Temperature Temperature Source Pulse Rate 87 Blood Pressure 127/73 H 131/86 H BP Systolic 127 131 BP Diastolic 73 86 Pulse Ox 12/19/23 17:44 12/19/23 17:59 12/19/23 17:59 Temperature Temperature Source Pulse Rate 84 82 Blood Pressure 131/89 H BP Systolic 131 BP Diastolic 89 Pulse Ox 12/19/23 18:15 12/19/23 18:15 12/19/23 19:15 Temperature Temperature Source Pulse Rate 90 Blood Pressure 133/87 H 132/88 H BP Systolic 133 132 BP Diastolic 87 88 Pulse Ox 12/19/23 19:15 12/19/23 19:15 12/19/23 19:19 Temperature Temperature Source Temporal Pulse Rate 86 Blood Pressure BP Systolic BP Diastolic Pulse Ox 98 12/19/23 19:19 12/19/23 23:02 12/19/23 23:03 Temperature 98.7 F Temperature Source Temporal Pulse Rate Blood Pressure 131/84 H BP Systolic 131 BP Diastolic 84 Pulse Ox 12/19/23 23:03 12/19/23 23:02 12/19/23 23:03 Temperature 97.6 F L Temperature Source Pulse Rate 82 Blood Pressure BP Systolic BP Diastolic Pulse Ox 98 Weight Weight: 185 lb Body Mass Index (BMI) 33.8 Physical Exam Const alert, oriented x3 and no apparent distress General Appearance: cooperative, comfortable and well kempt Orientation / Consciousness: awake and oriented to person Exam Limitations: no limitations HEENT normocephalic Neck full ROM Chest inspection of chest normal Resp normal respiratory effort, normal air movement and no retractions Effort and Inspection: able to speak in complete sentences and symmetric chest movement Cardio regular rate Peripheral Pulses: pulses 2+ throughout GI normal to inspection, nondistended, normoactive bowel sounds Inspection: gravid no CVA tenderness and appearance of the vagina normal External Female Exam: normal appearance of the urethra; Negative for external lesion OB / External & Speculum: external exam normal Manual OB Exam: estimated gestational size appropriate, presentation cephalic, dilated 1.5, effaced 40 and station -1 Uterus Palpation: Negative for uterus tender Extremity normal to inspection Skin no rashes or lesions noted Neuro deep tendon reflexes 2+ bilaterally and gait normal Motor Exam: strength 5/5 throughout and clonus absent Psych Activity / Motor Behavior: appropriate eye contact Speech: normal speech Labs Labs Labs: Blood Type O POSITIVE Antibody Screen NEGATIVE Hct 32.0 % (37-47) L Hgb 10.8 g/dL (12.0-15.0) L Obstetrics Ultrasound Syphilis Total Ab Non-reactive Rubella IgG Antibody Reactive (Nonreactive) Hep Bs Antigen Non-Reactive (Nonreactive) Hepatitis C Antibody Non-Reactive (Nonreactive) Chlamydia DNA (KAJAL) Negative (Negative) N.gonorrhoeae DNA (KAJAL) Negative (Negative) HIV 1&2 Antibody Non-Reactive (Nonreactive) Glucose 1 Hr 50 gm 114 mg/dL (70-140) Assessment & Plan (1) Pre-eclampsia: COMMENT: elevated BP with P:C ratio >400. admit to for IOL at 38.3 (2) Supervision of normal : QUALIFIERS: Normal : normal first Trimester: second trimester Qualified Code(s): Z34.02 - Encounter for supervision of normal first , second trimester COMMENT: PRR THADDEUS 12/30/23 girl [place] (3) : QUALIFIERS: Weeks of gestation: 38 weeks Qualified Code(s): Z3A.38 - 38 weeks gestation of COMMENT: GBS neg, NIPT low risk, declined carrier testing, nl anatomy PLAN: Plan IOL cytotec then with justice bulb. plan to add pitocin if ctx space/ or upon justice bulb removal. dr. queen updated on exam, admission and poc and agrees with above. co- management for pec.
[2023-12-20] MEDS: LACTATED RINGERS 500 ML 999 ML IV ×2 (00:47→08:17)
[2023-12-20] MEDS: Mag Hydrox/Al Hydrox/Simeth 30 ML UDC PO (03:32)
[2023-12-20] MEDS: Oxytocin 15 Units/NS 250ml 15 UNITS/250 ML IV.SOLN 2 UNITS IV (06:10)
--- NOTE | 2023-12-20 07:53 | PCM.PN.BLA ---
Progress Note Coping well with contractions current tracing: FHT: 135 Moderate variability with periods of minimal variability reactive no decelerations category I tracing [place]: 3-5 minute Contractions Membranes:AROM 0750 SVE:5/80/-2 A/P: Continue with position changes Titrate pitocin per protocol Start epidural per anesthesia Anticipate Dr Silveira aware of above assessment and agrees with plan of care Assessment & Plan Assessment/Plan (1) Pre-eclampsia: (2) Encounter for induction of labor: (3) Supervision of normal : QUALIFIERS: Normal : normal first Trimester: second trimester Qualified Code(s): Z34.02 - Encounter for supervision of normal first , second trimester (4) : QUALIFIERS: Weeks of gestation: 38 weeks Qualified Code(s): Z3A.38 - 38 weeks gestation of (5) Anemia: Multi Select Codes Urinary/Genital Urinary/Genital CPT Codes: No Charge
[2023-12-20] MEDS: fentaNYL-bupivacaine (epidural) 100 ML BAG EPIDURAL (10:18)
[2023-12-20] MEDS: Ondansetron 4 MG/2 ML Vial IV (11:06)
--- NOTE | 2023-12-20 12:27 | OP.PCM_ITS ---
Assessment & Plan (1) Vaginal delivery: COMMENT: KW IOL-pre e 38.4 Galina girl (2) Encounter for induction of labor: COMMENT: IOL for pre eclampsia (3) Pre-eclampsia: COMMENT: elevated BP with P:C ratio >400. admit to for IOL at 38.3 (4) Supervision of normal : QUALIFIERS: Normal : normal first Trimester: second trimester Qualified Code(s): Z34.02 - Encounter for supervision of normal first , second trimester COMMENT: PRR THADDEUS 12/30/23 girl Galina Timbo (5) : QUALIFIERS: Weeks of gestation: 38 weeks Qualified Code(s): Z3A.38 - 38 weeks gestation of COMMENT: GBS neg, NIPT low risk, declined carrier testing, nl anatomy (6) Anemia: COMMENT: add Fe, recheck at 34 weeks. Maternal Data Information THADDEUS Calculator Estimated Delivery Date Method Current WG Current Estimate 12/30/23 LMP (Certain) 38w 4d Other Estimates 12/31/23 Ultrasound #1 38w 3d Final THADDEUS: 12/30/23 Final THADDEUS Source: US >20 weeks Gestational age: 38.4 weeks Vaginal Delivery Maternal Presentation Maternal Presentation: Progressed well to 10cm dilated and made steady progress with effective maternal pushing. Delivered the head in MAGALIE presentation. The head was delivered atraumatically and no nuchal cord was identified. The anterior and posterior shoulders delivered without complication followed by the rest of the and the infant was placed on the maternal abdomen. Delayed cord clamping was employed for approximately 3 minutes. Cord was clamped and cut and gentle traction was applied to the cord and the placenta delivered spontaneously. Immediately following, it was noted to be intact with a 3 vessel cord. The perineum and vagina were inspected and noted to have a second degree laceration which was repaired with 3-0 Vicryl in the usual fashion. EBL was 150cc. Patient and tolerated delivery well. Apgars 8/9. Dr Silveira notified of vaginal delivery and orders reviewed. Physician agrees with current plan of care. Type of Induction: Pitocin, Palacios Bulb and Cytotec Medical Reason for Induction: Preeclampsia, eclampsia Operative Information Date of Procedure: 12/20/23 Pre-Operative Diagnosis: See AP comments Post-Operative Diagnosis: Same Surgery / Procedure Performed: Spontaneous Vaginal Delivery ophthalmology surgical technician #1: Lisa Mireles Type of Anesthesia: Epidural Estimated Blood Loss: 150 Time of Delivery: 12:03 Findings Presentation: MAGALIE Amniotic Membrane Rupture Type: Artificial Time of Membrane Rupture: 0750 Amniotic Fluid Description: Clear Placental Delivery Description: Spontaneous Placenta Disposition: [facility] Cord Vessel Description: 3 Vessels Cord Entanglement: None Infant A Gender: Female (1 minute): 8 (5 minute): 9 Delayed Cord Clamping: Yes Post Vaginal Delivery Medications Given After Delivery: IV Pitocin Episiotomy Description: None Laceration: 2nd degree Complication Complications: None Multi Select Codes Urinary/Genital Urinary/Genital CPT Codes: 81303 Vaginal Delivery [facility]
[2023-12-20] MEDS: Ibuprofen 600 MG Tablet PO (12:57)
[2023-12-20] MEDS: Oxytocin 15 Units/NS 250ml 15 UNITS/250 ML IV.SOLN 83 UNITS IV (13:19)
[2023-12-20] MEDS: Acetaminophen 500 MG Tablet 1000 MG PO (22:46)
[2023-12-21] VITALS (11 sets, daily range): BP systolic 116–138; BP diastolic 58–87; PULSE 83–106; RESP 15–16; TEMP 36.3–36.8; O2SAT 96–98
--- NOTE | 2023-12-21 08:08 | PN.OBGYN_ITS ---
Subjective Subjective Patient doing well without complaints. Tolerating PO. Ambulating and voiding without difficulty. Feeding well. Denies chest pain, shortness of breath, calf pain/swelling, fevers, chills, lightheadedness. Objective Data Objective Data Vital Signs: Vital Signs Temp Pulse Resp BP Pulse Ox O2 Del Method 98.2 F 91 16 116/72 97 Room Air 12/21/23 07:58 12/21/23 07:58 12/21/23 07:58 12/21/23 07:58 12/21/23 07:58 12/21/23 07:58 Oxygen Delivery Method Room Air Weight: 185 lb Body Mass Index (BMI) 33.8 Intake & Output: Intake and Output for Last 24 Hours 12/19/23 12/20/23 12/21/23 23:59 23:59 23:59 Intake Total 2500.00 / 2500.00 Output Total 700 / 700 300 / 300 Balance 1800.00 / 1800.00 -300 / -300 Lab / Micro Data 12/19/23 17:40 12/19/23 17:05 Physical Exam Const alert and oriented x3 HEENT normocephalic Eyes PERRL Neck full ROM Resp normal respiratory effort GI soft to palpation GI Narrative: FF below U Assessment & Plan (1) Vaginal delivery: COMMENT: KW IOL-pre e 38.4 [place] girl (2) Pre-eclampsia: QUALIFIERS: Trimester: unspecified trimester Qualified Code(s): O14.90 - Unspecified pre-eclampsia, unspecified trimester (3) Anemia: QUALIFIERS: Anemia type: iron deficiency Iron deficiency anemia type: unspecified iron deficiency Qualified Code(s): D50.9 - Iron deficiency anemia, unspecified PLAN: Plan s/p PPD # 1 1. routine post delivery care 2. breast feeding- support given 3. rh positive 4. rubella immune 5. anemia stable 6. BP stable 7. home today
[2023-12-21] MEDS: Acetaminophen 500 MG Tablet 1000 MG PO ×2 (08:22→17:26)
--- NOTE | 2023-12-21 13:18 | CASEMGMT ---
Social Work Assessment Labor and Delivery Unit Patient [address] [place] [id number] Phone number: [phone] Date of Referral: 12/19/23 Time of Referral:? 193 Referred By: Demetrio Cheng Date of Intervention: 12/21/23?? Time of Intervention:? 1100 Reason for Referral:? anxiety, dad alcoholic Sw completed chart review and acknowledges social work consult due to maternal mental health of anxiety and father alcoholism. Sw presented to bedside and introduced self to mother of baby (MOB- Rafia) and father of baby (FOB- Timbo). MOB had several visitors present, sw asked if ok to complete assessment now or offered to return at later time. MOB stated ok to complete assessment now. Sw asked FOB and visitors to exit room momentarily so that MOB could complete Cecil Depression Scale. FOB and visitors left room respectfully. History obtained from: medical records, MOB and FOB Household composition: MOB states that currently residing in the family home is MOB, FOB and now baby. Parents deny any issues or concerns with housing. Patient's parent/guardian status:? ?MOB states that she and FOB went to same school, although FOB was a little older than MOB. MOB states that she and FOB enjoy doing the same things and have a lot of same friends. They have been together for 4 years. While meeting with MOB privately, she denies any abuse, domestic violence or intimate partner violence. Medical History: ?NEGRA is 28 year old female who is 2, para 0-now 1 following labor and delivery. NEGRA did experience chemical / loss. NEGRA received routine care during with [facility]. NEGRA presented to hospital for routine appointment, and then was admitted for an induction of labor due to high blood pressure. NEGRA delivered baby on 12/20/23 via vaginal delivery at 38 weeks gestation. Baby girl, named Kelsey April, was born weighing 7lb 2oz and her apgars were 8 and 9 at one and five minutes of life respectfully. NEGRA states that she is breast feeding, but is overwhelmed and nervous to go home without nursing help. Sw informed NEGRA that it is ok if she wants to stay admitted another night. MOB stated she is open to that and may reconsider discharge today. MOB states that baby will be followed by Dr. Suazo for Pediatrics. Educational Status:? Both parents graduated from high school. NEGRA obtained an associates degree. No concerns with reading, learning or comprehension. Financial Status: Both parents are gainfully employed outside of the home. 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 Infant Supplies:??Parents have obtained all necessary baby supplies, including: car seat, safe sleep space, clothes, diapers and wipes. Childcare/Caregiver(s):? While NEGRA is on maternity leave, she will be the primary caregiver to baby, along with KIKE. When both parents have returned to work, they have several family members that will assist with childcare. Transportation:?? NEGRA and KIKE both have valid drivers license and reliable means of transportation. No barriers at this time. Programs/Agencies Involved: ??Parents are not connected to any financial resources at this time. ? Children Services/Legal Issues:??No history of children services involvement, no issues or concerns warranting referral at this time. ? Behavioral Health Issues: ??Mental Health History: KIKE states that he has always struggled with anxiety, is not prescribed medication at this time. KIKE states that he participated in IOP at the hospital and feels as though he took at lot away from that experience. KIKE states that he has healthy and appropriate coping skills. NEGRA states that she has also always struggled with anxiety. NEGRA states that her anxiety was really challenging during her . NEGRA stated that FORick was in a car accident. NEGRA states that a friend of hers and it feels as though there has been one thing after the next and it has been difficult. NEGRA states that she is receptive to getting started on an antianxiety medication. Madelyn encouraged NEGRA to talk to her OBGYN or Primary Care doctor about this request. NEGRA completed Cecil Depression Scale, her score was a 9. Sw educated MOB and provided support. Madelyn spoke to NEGRA at length regarding her mental health history and current symptoms. Sw encouraged NEGRA to think about staying admitted another night to ensure she obtains support and feels more confident with breast feeding before being discharged. NEGRA stated that she would think about this. ??? Substance Use History: MOB denies substance use prior to and during . ?? Family History:?NEGRA states that her father has a history of alcoholism, as well as other older family members on her paternal father's side of family. MOB denies any significant mental health diagnoses. ? Drug Screens: No urine screens observed during chart review. ?? Family/Social Stressors:? MOB states that her anxiety, and FOB's anxiety are a current stressor. MOB stated that although their anxieties have been a stress during her , it is also something that they have been processing together. Support Systems: MOB states that she has a lot of support found in FOB, her mom and her aunt. Depression/Shaken Baby/Safe Sleeping:? Sw educated parents on signs and symptoms of baby blues and depression. Sw provided literature for parents to review. Parents expressed understanding. Sw educated parents on shaken baby prevention and ABCs of safe sleep. Parents express understanding. ASSESSMENT:? MOB and baby admitted following labor and delivery of . MOB and FOB both have history of anxiety. Neither parent prescribed medications at this time. MOB express understanding of depression/ anxiety to be on the lookout for. MOB able to express concern for and wanted to succeed. MOB with supports in place and everything needed for baby. MOB made good eye contact and was open during assessment questions. PLAN:? MOB and baby to be discharged when medically ready. ?No other services requested or indicated. Mallorie Tavera, DIE TRIPPER, BOILER TENDERS SUPERVISOR
[2023-12-21] MEDS: Senna/Docusate Sodium 1 Tablet PO (17:30)
[2023-12-22 01:09] VITALS: BP 126/78; PULSE 91
[2023-12-22 01:24] VITALS: BP 126/78; PULSE 89; RESP 18; TEMP 36.4; O2SAT 97
--- NOTE | 2023-12-22 08:10 | DCINST_ITS ---
Discharge Instructions Diet Discharge Diet: No restrictions Activity Discharge Activity: Return to Normal Activity, May Not Drive (while taking narcotic pain medications.) and May Shower May resume sexual activity in: 4-6 weeks Dressing / Incision Call your doctor if your incision/area has: Continuous Slow Oozing, Sudden Increased Bleeding, Increased Pain/ Swelling, Increased Redness and Foul Smelling Discharge Follow Up Care Please Follow Up With: Abeba Silveira MD When: Call [phone] to make an appointment with your doctor in 6 weeks. If you had elevated blood pressure or 4th degree laceration, you will need to be seen in 2 weeks. Test Results: Test results from this visit will be discussed in further detail at your follow- up appointment, if applicable. Discharge Plan Admission Admit Date/Time: 12/19/23 18:15 Attending Provider: Lisa Mireles Primary Care Provider: Care Physician,No Primary Instructions Patient Instructions: After a Vaginal Discharge Orders/Prescriptions Prescriptions: No Action PNV-DHA 27 mg iron-1 mg -300 mg capsule 1 cap PO DAILY Referrals / Follow Up: Care Physician,No Primary [Primary Care Provider] - Disposition Disposition (needs filled in before D/C Order can be placed): Home, Self Care
--- NOTE | 2023-12-22 08:10 | PCM.PN.OB ---
Subjective Subjective Patient doing well without complaints. Tolerating PO. Ambulating and voiding without difficulty. feeding well. Denies chest pain, shortness of breath, calf pain/swelling, fevers, chills, lightheadedness. Objective Data Objective Data Vital Signs: Vital Signs Temp Pulse Resp BP Pulse Ox O2 Del Method 97.6 F L 89 18 126/78 H 97 Room Air 12/22/23 01:24 12/22/23 01:24 12/22/23 01:24 12/22/23 01:24 12/22/23 01:24 12/22/23 01:24 Oxygen Delivery Method Room Air Weight: 185 lb Body Mass Index (BMI) 33.8 Intake & Output: Intake and Output for Last 24 Hours 12/20/23 12/21/23 12/22/23 23:59 23:59 23:59 Intake Total 2500.00 / 2500.00 Output Total 700 / 700 300 / 300 Balance 1800.00 / 1800.00 -300 / -300 Lab / Micro Data 12/19/23 17:40 12/19/23 17:05 ROS Constitutional Constitutional: Reports systems reviewed and no addt'l complaints, except as documented Cardiovascular Cardiovascular: Reports systems reviewed and no addt'l complaints, except as documented Respiratory/Chest Respiratory/Chest: Reports systems reviewed and no addt'l complaints, except as documented Gastrointestinal Gastrointestinal: Reports systems reviewed and no addt'l complaints, except as documented Physical Exam Const alert, oriented x3 and no apparent distress HEENT Head and Scalp: atraumatic Resp normal respiratory effort GI soft to palpation and non-tender Bimanual Exam - Vag & Uterus: uterus non-tender Uterus Palpation: uterus fundus firm (below Umbilicus) Assessment & Plan (1) Vaginal delivery: COMMENT: KW IOL-pre e 38.4 Galina girl (2) Pre-eclampsia: QUALIFIERS: Trimester: unspecified trimester Qualified Code(s): O14.90 - Unspecified pre-eclampsia, unspecified trimester (3) Anemia: QUALIFIERS: Anemia type: iron deficiency Iron deficiency anemia type: unspecified iron deficiency Qualified Code(s): D50.9 - Iron deficiency anemia, unspecified PLAN: Plan s/p PPD # 2 1. routine post delivery care 2. breast feeding- support given 3. rh positive 4. rubella immune
[2023-12-22 10:52] VITALS: BP 123/79; PULSE 84
[2023-12-22 11:00] VITALS: BP 123/79; PULSE 84; RESP 16; TEMP 36.4
[2023-12-22] MEDS: Senna/Docusate Sodium 1 Tablet PO (11:04)
[2023-12-22] MEDS: Acetaminophen 500 MG Tablet 1000 MG PO (11:05)
[2023-12-22] MEDS: Benzocaine/Lanolin/Aloe Vera 1 SPRAY EACH TOPICAL ×2 (11:05→11:22)
--- NOTE | 2023-12-26 11:59 | PCM.DC.SUM ---
Providers Date of Admission: 12/19/23 Primary Care Physician: Arely Primary Care Phys Reason For Visit: VAGINAL DELIVERY Diagnosis Discharge Diagnosis (1) Vaginal delivery: Status: Acute Code(s): O80 - Encounter for full-term uncomplicated delivery (2) Pre-eclampsia: Status: Acute Code(s): O14.90 - Unspecified pre-eclampsia, unspecified trimester Qualifiers: Trimester: unspecified trimester Qualified Code(s): O14.90 - Unspecified pre-eclampsia, unspecified trimester (3) Anemia: Status: Acute Code(s): D64.9 - Anemia, unspecified Qualifiers: Anemia type: iron deficiency Iron deficiency anemia type: unspecified iron deficiency Qualified Code(s): D50.9 - Iron deficiency anemia, unspecified Plan s/p PPD # 1 1. routine post delivery care 2. breast feeding- support given 3. rh positive 4. rubella immune 5. anemia stable 6. BP stable 7. home today Medications at Discharge Home Medications multivitamin no.47-iron fum 27 mg-folate no.1 1 mg-dha 300 mg capsule (PNV-DHA) 1 cap PO DAILY vitamin 05/26/23 Hospital Course Operations section Summary of Care Provided Hospital Course: Patient underwent section with routine recovery, return of normal bowel and bladder function. Ambulating, voiding and tolerating PO. Stable for discharge home POD #3. Weight / BMI Weight Weight: 185 lb Body Mass Index (BMI) 33.8 ABG / Lab / Microbiology Data 12/19/23 17:40 12/19/23 17:05 D/C Instructions Discharge Diet: No restrictions May resume sexual activity in: 4-6 weeks Call your doctor if your incision/area has: Continuous Slow Oozing, Sudden Increased Bleeding, Increased Pain/ Swelling, Increased Redness and Foul Smelling Discharge Please Follow Up With: Abeba Silveira MD When: Call [phone] to make an appointment with your doctor in 6 weeks. If you had elevated blood pressure or 4th degree laceration, you will need to be seen in 2 weeks. Meaningful Use Info Meaningful Use Diagnoses (Choose all that apply): None applicable Discharge Plan Admission Admit Date/Time: 12/19/23 18:15 Attending Provider: Lisa Mireles Primary Care Provider: Care Physician,Arely Primary Instructions Patient Instructions: After a Vaginal Discharge Orders/Prescriptions Prescriptions: No Action PNV-DHA 27 mg iron-1 mg -300 mg capsule 1 cap PO DAILY Referrals / Follow Up: Care Physician,No Primary [Primary Care Provider] - Disposition Disposition (needs filled in before D/C Order can be placed): Home, Self Care
== END 2023-12-22 13:35 | disposition home or self-care (01) | DRG 807 ==
LOC: WPOUT 18:21 → WP 18:21
PROVIDERS: Obstetrics & Gynecology; Registered Nurse; Admitting Provider Advanced Practice Midwife; Visit Provider Advanced Practice Midwife
DX: O14.94 Unspecified pre-eclampsia, complicating childbirth (principal); Z37.0 Single live birth; D50.9 Iron deficiency anemia, unspecified; O70.1 Second degree perineal laceration during delivery; O99.02 Anemia complicating childbirth; Z3A.38 38 weeks gestation of pregnancy
CPT/HCPCS: 59025; 59050; 82565; 82570; 84156; 84450; 84460; 84550; 85027; 86780; 86850; 86900; 86901; 99221; J7120; G0378; J2405